=== PATIENT | male | born 1970 | race Caucasian/White ===

== ENCOUNTER 2023-05-19 06:16 | Inpatient (IN) ==
[2023-05-19] MEDS: SODIUM CHLORIDE 0.9% 1,000 ML IV ONE ×2 (06:43→07:51)
[2023-05-19] MEDS: ALBUT/IPRATROP 3MG/0.5MG NEB 3 ML VIAL NEB STA ×2 (06:43→06:47)
[2023-05-19] MEDS: ACETAMINOPHEN 1,000 MG/100 ML VIAL IV STA (06:49)
[2023-05-19 06:50] LABS: Base Excess VBG -1.1 mEq/L; HCO3 VBG 22 mmol/L; Oxygen Saturation VBG 79.1 %; PCO2 VBG 33 mmHg (38-50); PO2 VBG 45 mmHg; pH VBG 7.44 (7.36-7.41)
--- NOTE | 2023-05-19 06:52 | Emergency Department Note ---
Impression & Plan Acute respiratory failure with hypoxia, Lactic acidosis, Sepsis, Influenza A (H1N1) ED Provider Note NAME: SKYLER DURHAM AGE: 52 SEX: M : 1970 ARRIVES VIA: Walk-In INFORMANT: Patient, ED PROVIDER(S): Zackery Keller MD CHIEF COMPLAINT: Lethargy, increased work of breathing, fever MEDICAL DECISION MAKING: Patient presents due to concern for lethargy increased work of breathing and fever. The patient is arousable to verbal stimuli and does follow commands. IV was established and blood work was obtained. Patient was ordered IV fluids DuoNeb treatment methylprednisolone chest x-ray BioFire blood cultures and lactate. Patient was also ordered empiric antibiotics as well as antipyretics given the reported fever at home. Patient's blood work shows a white count of 43,000 with a normal H&H and platelet count. The patient's kidney function with creatinine 1.54 mild hyponatremia 134 blood gas with a VBG pH is 7.44 and pCO2 of 33. Patient's initial lactate was 3. Magnesium noted to be low at 1.4. Initial troponin 21.6. Patient did receive 2 L and was ordered a third. Procalcitonin is elevated at 21. The patient did have softer blood pressures and initially there was a concern for decreased blood pressure after speaking with the inpatient service Dr. Mitchell who evaluated the patient. Also of note the patient may have had an allergic reaction to the Zosyn which was stopped. Patient reportedly does not do well with Benadryl but it already received methylprednisolone. The patient was ordered Pepcid IV by the inpatient team I did go and evaluate the patient the patient's MAP was 74 and was receiving his third liter. The patient does look markedly improved since the time of his arrival and after treatment. Patient was also noted to be flu positive negative for MRSA and bio fire was positive for enterorhinovirus. Patient was subsequently admitted by the medicine team. Critical Care: I have personally spent 50 minutes of critical care time in direct management of this patient. This includes bedside care, interpretation of diagnostic studies, and testing, discussion with consultants, patient, and family members, and other require inpatient management activities. This 50 minutes is in excess of all separately billable procedures. Discussion w/ other healthcare providers: Venkat Ruelas PA-C and Dr. Mitchell Prior /Outside records reviewed: None Differential diagnosis: Viral syndrome, otitis, pharyngitis, pneumonia, influenza, meningitis, urinary tract infection, sepsis, bacteremia, as well as other pathologies. Diagnostics, as interpreted by me: ECG: Sinus tachycardia, rate of 110, normal intervals, normal axis no ST elevations, T wave version in the lateral leads. Cardiac monitoring: An order was placed for continuous cardiac monitoring. The monitor shows a rate of 102 with tachycardic and regular rhythm. Patient was placed on pulse oximetry Medical decision rules: None Imaging studies: I informally interpreted the patient's chest x-ray does show left-sided pleural effusion with formal report to follow. HPI: Patient presents due to concern for increased work of breathing and associated fever. The who is present at bedside provides the majority of the history. She states that about 2 weeks ago the patient had been seen at [facility] and was started on some steroids the patient does have a known history of asthma. Patient was seen by his chain maker loom control this past Monday and continued on steroid treatment but was placed on a taper for which she has been taking. Patient has not taken any antibiotics. Patient is a non-smoker. No known sick contacts or recent travel. Do not receive flu shot this year. When questioned the patient states that he does complain of diffuse allover body aches and pain. Patient does complain of shortness of breath. The patient's had a cough but it has not been very productive. states that she was concerned as she woke up this morning because of his work of breathing took his temperature and noted to be 103. Patient also does have inhaler treatments that he has been taking regularly. PAST MEDICAL HISTORY: See Below PAST SURGICAL HISTORY: See Below SOCIAL HISTORY: See Below HOME MEDICATIONS: See Below ALLERGIES: See Below VITALS: See Below PHYSICAL EXAMINATION: GENERAL: Ill in appearance, opens eyes to voice. EYE EXAM: Normal conjunctiva. PERRL, no anisocoria and EOM's grossly intact w/o pain. OROPHARYNX: Moist mucus membranes, grossly normal dentition. NECK: Trachea midline, no stridor. Supple, no nuchal rigidity, no adenopathy, non-tender. No signs of meningismus. FROM of the neck with good chin to chest and neck extension. LUNGS: Decreased breath sounds throughout. Normal chest wall mechanics. HEART: Tachycardic and regular, no MRG. ABDOMEN: Abdomen soft, non-tender, no masses, no rebound or guarding. BACK: No CVA TTP. SKIN: No rashes and no bruising. UPPER EXTREMITIES: Upper extremities are grossly normal. LOWER EXTREMITIES: Grossly normal, no edema. NEURO EXAM: GCS of 14, cranial nerves II-XII grossly intact, normal speech, moves all 4 extremities. Past Med/Surg History Medical History Asthma Surgical History No pertinent past surgical history Social History Smoking Status: Never smoker Hx Alcohol Use: Yes Alcohol type: wine Hx Substance Use: No Preferred Language: Sinhala Communication Ability: Effective Phone Screener Required: No Beliefs That Will Affect Care: None Current Living Situation: Spouse Feels Safe at Home: Yes Assistive Devices: Nebulizer Allergies Allergies Allergy/AdvReac Type Severity Reaction Status Date / Time piperacillin [From Zosyn] Allergy Intermediate Hives Unverified 05/19/23 10:35 tazobactam [From Zosyn] Allergy Intermediate Hives Unverified 05/19/23 10:35 fish oil Allergy Hives Verified 05/19/23 10:25 diphenhydramine AdvReac Agitated Verified 05/19/23 10:25 [From Benadryl] Home Meds Home Medications Medication Instructions Recorded Confirmed acetaminophen 500 mg tablet 500 mg PO Q6H PRN pain/fever 05/19/23 05/19/23 albuterol sulfate 1.25 mg/3 mL 1.25 mg continuous nebulization 05/19/23 05/19/23 solution for nebulization Q4H PRN Breathing Problems albuterol sulfate 90 mcg/actuation 2 puff inhalation Q4H PRN 05/19/23 05/19/23 aerosol inhaler Breathing Problems fluticasone fur. 200 mcg-umeclid 1 inh inhalation QAM 05/19/23 05/19/23 62.5 mcg-vilant 25 mcg inhalat.powder (Trelegy Ellipta) ibuprofen 200 mg tablet 200 mg PO Q6H PRN Pain 05/19/23 05/19/23 montelukast 10 mg tablet 10 mg PO HS 05/19/23 05/19/23 naproxen 500 mg tablet,delayed 500 mg PO BID PRN pain in knees 05/19/23 05/19/23 release prednisone 10 mg tablet See Rx Instructions .Route .COMPLEX 05/19/23 05/19/23 tramadol 50 mg tablet 50 mg PO Q8H PRN Severe Pain 05/19/23 05/19/23 (Scale Score 7-10) Results & Data (ED) Vital Signs Vital Signs - 24 hr 05/19/23 06:30 05/19/23 06:42 05/19/23 06:44 Temperature 36.2 C L Temperature Source Temporal Artery Scan Pulse Rate 111 H 107 H 114 H Pulse Rate from SpO2 Sensor Respiratory Rate 24 20 Blood Pressure 81/55 L Blood Pressure Mean 63 Pulse Oximetry 92 84 L Oxygen Delivery Method Room Air Room Air Oxygen Flow Rate 10 Sepsis Recent Fever Within 48 Hours Yes Sepsis New/Unexplained Change in Mental Status Yes Sepsis Action Taken by Nursing No Action Required 05/19/23 07:00 05/19/23 07:15 05/19/23 07:30 Temperature Temperature Source Pulse Rate 108 H 113 H 115 H Pulse Rate from SpO2 Sensor 108 H 113 H 115 H Respiratory Rate 20 20 19 Blood Pressure 101/65 98/58 L 93/60 L Blood Pressure Mean 77 71 71 Pulse Oximetry 99 96 96 Oxygen Delivery Method Nebulizer Nebulizer Nebulizer Oxygen Flow Rate Sepsis Recent Fever Within 48 Hours Sepsis New/Unexplained Change in Mental Status Sepsis Action Taken by Nursing 05/19/23 07:45 05/19/23 08:00 05/19/23 08:15 Temperature Temperature Source Pulse Rate 115 H 111 H 111 H Pulse Rate from SpO2 Sensor 116 H 111 H 111 H Respiratory Rate 20 18 19 Blood Pressure 80/59 L 91/58 L 84/65 L Blood Pressure Mean 66 69 71 Pulse Oximetry 93 94 93 Oxygen Delivery Method Oxymask Oxygen Flow Rate 4 Sepsis Recent Fever Within 48 Hours Sepsis New/Unexplained Change in Mental Status Sepsis Action Taken by Nursing 05/19/23 08:30 Temperature Temperature Source Pulse Rate 109 H Pulse Rate from SpO2 Sensor 109 H Respiratory Rate 17 Blood Pressure 88/58 L Blood Pressure Mean 68 Pulse Oximetry 93 Oxygen Delivery Method Oxygen Flow Rate Sepsis Recent Fever Within 48 Hours Sepsis New/Unexplained Change in Mental Status Sepsis Action Taken by Group Home Medications Current Medication List: was personally reviewed by mo Laboratory Data Attestation: I reviewed the patient's lab results. 05/19/23 06:34 05/19/23 06:34 Lab Results 05/19/23 05/19/23 05/19/23 Range/Units 06:34 06:35 07:05 WBC 43.91 H* (4.8-10.8) K/ul RBC 5.68 (4.70-6.10) M/uL Hgb 16.7 (14.0-18.0) g/dl Hct 49.1 (42.0-52.0) % MCV 86.4 (80.0-100.0) fL MCH 29.4 (25.0-34.0) pg MCHC 34.0 (32.0-36.0) g/dL RDW Std Deviation 45.7 (36.4-46.3) fL RDW Coeff of Nicola 14.6 H (11.5-14.5) % Plt Count 280 (130-400) K/uL MPV 10.2 (9.4-12.4) fL Immature Gran % (Auto) 2.5 % Neut % (Auto) 84.1 % Lymph % (Auto) 9.2 % Nobles % (Auto) 4.1 % Eos % (Auto) 0.0 % Baso % (Auto) 0.1 % Neut # (Auto) 36.92 H (1.40-6.50) K/uL Lymph # (Auto) 4.05 H (1.20-3.40) K/uL Nobles # (Auto) 1.79 H (0.11-0.59) K/uL Eos # (Auto) 0.02 (0.00-0.50) K/uL Baso # (Auto) 0.03 (0.00-0.20) K/uL Immature Gran # (Auto) 1.10 H (0.01-0.20) K/uL Toxic Vacuolation 1+ Polychromasia 1+ PT 11.9 (9.0-12.0) Seconds INR 1.1 (0.9-1.1) VBG pH 7.44 H (7.36-7.41) VBG pCO2 33 L (38-50) mmHg VBG pO2 45 mmHg VBG HCO3 22 mmol/L VBG O2 Saturation 79.1 % VBG Base Excess -1.1 mEq/L Sodium 134 L (136-145) mmol/L Potassium 3.7 (3.5-5.1) mmol/L Chloride 100 (98-107) mmol/L Carbon Dioxide 24 (21-32) mmol/L Anion Gap 10 (3-11) BUN 20 (6-23) mg/dl Creatinine 1.54 H (0.6-1.4) mg/dl Est Cr Clr Drug Dosing 61.0 ml/min Est GFR ( Amer) 59.2 ml/min Est GFR (Non-Af Amer) 51.1 ml/min BUN/Creatinine Ratio 13.0 (10-20) Glucose 106 H (70-99(Fasting)) mg/dl Lactate (0.4-2.0) mmol/L Calcium 8.8 (8.6-10.3) mg/dl Magnesium 1.4 L (1.7-2.4) mg/dl Total Bilirubin 2.5 H (0.2-1.0) mg/dl AST 18 (13-39) U/L ALT 25 (7-52) U/L Alkaline Phosphatase 88 (34-104) U/L Troponin I High Sens 21.6 H (0-20) pg/ml B-Natriuretic Peptide 79 (0-100) pg/ml Total Protein 6.5 (6.0-8.3) gm/dl Albumin 3.9 (3.4-5.0) gm/dl Globulin 2.6 (2.5-4.0) gm/dl Albumin/Globulin Ratio 1.5 (0.9-2) Procalcitonin 21.10 H (0-0.5) ng/ml Nasal Influ A H1 2008 PCR DETECTED A (NotDetected) Nasal Screen MRSA (PCR) (Negative) Adenovirus (PCR) Not Detected (NotDetected) B. pertussis DNA (PCR) Not Detected (NotDetected) B.parapertussis DNA PCR Not Detected (NotDetected) C. pneumoniae DNA (PCR) Not Detected (NotDetected) Coronavirus OC43 (PCR) Not Detected (NotDetected) Coronavirus HKU1 (PCR) Not Detected (NotDetected) Coronavirus 229E (PCR) Not Detected (NotDetected) SARS-CoV-2 (PCR) Not Detected (NotDetected) Coronavirus NL63 (PCR) Not Detected (NotDetected) Human Metapneumovir PCR Not Detected (NotDetected) Influenza Type B (PCR) Not Detected (NotDetected) M. pneumoniae (PCR) Not Detected (NotDetected) Parainfluenza 1 (PCR) Not Detected (NotDetected) Parainfluenza 2 (PCR) Not Detected (NotDetected) Parainfluenza 3 (PCR) Not Detected (NotDetected) Parainfluenza 4 (PCR) Not Detected (NotDetected) RSV (PCR) Not Detected (NotDetected) Entero/Rhino (PCR) DETECTED A (NotDetected) 05/19/23 05/19/23 Range/Units 07:14 07:59 WBC (4.8-10.8) K/ul RBC (4.70-6.10) M/uL Hgb (14.0-18.0) g/dl Hct (42.0-52.0) % MCV (80.0-100.0) fL MCH (25.0-34.0) pg MCHC (32.0-36.0) g/dL RDW Std Deviation (36.4-46.3) fL RDW Coeff of Nicola (11.5-14.5) % Plt Count (130-400) K/uL MPV (9.4-12.4) fL Immature Gran % (Auto) % Neut % (Auto) % Lymph % (Auto) % Nobles % (Auto) % Eos % (Auto) % Baso % (Auto) % Neut # (Auto) (1.40-6.50) K/uL Lymph # (Auto) (1.20-3.40) K/uL Nobles # (Auto) (0.11-0.59) K/uL Eos # (Auto) (0.00-0.50) K/uL Baso # (Auto) (0.00-0.20) K/uL Immature Gran # (Auto) (0.01-0.20) K/uL Toxic Vacuolation Polychromasia PT (9.0-12.0) Seconds INR (0.9-1.1) VBG pH (7.36-7.41) VBG pCO2 (38-50) mmHg VBG pO2 mmHg VBG HCO3 mmol/L VBG O2 Saturation % VBG Base Excess mEq/L Sodium (136-145) mmol/L Potassium (3.5-5.1) mmol/L Chloride (98-107) mmol/L Carbon Dioxide (21-32) mmol/L Anion Gap (3-11) BUN (6-23) mg/dl Creatinine (0.6-1.4) mg/dl Est Cr Clr Drug Dosing ml/min Est GFR ( Amer) ml/min Est GFR (Non-Af Amer) ml/min BUN/Creatinine Ratio (10-20) Glucose (70-99(Fasting)) mg/dl Lactate 3.0 H* (0.4-2.0) mmol/L Calcium (8.6-10.3) mg/dl Magnesium (1.7-2.4) mg/dl Total Bilirubin (0.2-1.0) mg/dl AST (13-39) U/L ALT (7-52) U/L Alkaline Phosphatase (34-104) U/L Troponin I High Sens (0-20) pg/ml B-Natriuretic Peptide (0-100) pg/ml Total Protein (6.0-8.3) gm/dl Albumin (3.4-5.0) gm/dl Globulin (2.5-4.0) gm/dl Albumin/Globulin Ratio (0.9-2) Procalcitonin (0-0.5) ng/ml Nasal Influ A H1 2008 PCR (NotDetected) Nasal Screen MRSA (PCR) Negative (Negative) Adenovirus (PCR) (NotDetected) B. pertussis DNA (PCR) (NotDetected) B.parapertussis DNA PCR (NotDetected) C. pneumoniae DNA (PCR) (NotDetected) Coronavirus OC43 (PCR) (NotDetected) Coronavirus HKU1 (PCR) (NotDetected) Coronavirus 229E (PCR) (NotDetected) SARS-CoV-2 (PCR) (NotDetected) Coronavirus NL63 (PCR) (NotDetected) Human Metapneumovir PCR (NotDetected) Influenza Type B (PCR) (NotDetected) M. pneumoniae (PCR) (NotDetected) Parainfluenza 1 (PCR) (NotDetected) Parainfluenza 2 (PCR) (NotDetected) Parainfluenza 3 (PCR) (NotDetected) Parainfluenza 4 (PCR) (NotDetected) RSV (PCR) (NotDetected) Entero/Rhino (PCR) (NotDetected) Administered Medications Albuterol (Albut/Ipratrop 3mg/0.5mg Neb 3 Ml Vial) 3 ml NEB Q4R ALVAREZ; Protocol Stop: 06/18/23 12:11 Last Admin: 05/19/23 13:28 Dose: 3 ml Documented By: VINNY Benzonatate (Benzonatate 100 Mg Capsule) 100 mg PO TID [facility] Stop: 06/18/23 12:11 Last Admin: 05/19/23 13:38 Dose: Not Given Documented By: Admin: 05/19/23 12:48 Dose: 100 mg Documented By: SHEILA Enoxaparin Sodium (Enoxaparin Inj 30 Mg/0.3 Ml Syr) 30 mg SQ Q12H ALVAREZ Stop: 06/18/23 11:59 Last Admin: 05/19/23 12:47 Dose: 30 mg Documented By: SHEILA Fludrocortisone Acetate (Fludrocortisone Acetate 0.1 Mg Tab) 0.1 mg PO QAM [facility] Stop: 06/18/23 11:29 Last Admin: 05/19/23 12:47 Dose: 0.1 mg Documented By: SHEILA Guaifenesin (Guaifenesin 600 Mg Tabcr) 1,200 mg PO Q12 [facility] Stop: 06/18/23 12:11 Last Admin: 05/19/23 13:53 Dose: 1,200 mg Documented By: SHEILA Cefepime HCl 2,000 mg/ Syringe 20 mls @ 5 mls/min IV Q8H ALVAREZ; Protocol Stop: 05/26/23 09:59 Last Admin: 05/19/23 12:19 Dose: 5 mls/min Documented By: SHEILA Metronidazole (Flagyl) 500 mg in 100 mls @ 100 mls/hr IV Q12H ALVAREZ; Protocol Stop: 05/26/23 09:59 Last Infusion: 05/19/23 12:42 Dose: Infused Documented By: Admin: 05/19/23 10:21 Dose: 100 mls/hr Documented By: MMVenancio Hydrocortisone Sodium (Succinate 50 mg/ Syringe) 1 mls @ 4 mls/min IV Q6H AL[facility]AREZ Stop: 06/18/23 11:59 Last Admin: 05/19/23 12:48 Dose: 4 mls/min Documented By: SHEILA Sodium Chloride (Nss) 1,000 mls @ 125 mls/hr IV .Q8H ALVAREZ Stop: 05/19/23 20:11 Last Admin: 05/19/23 13:19 Dose: 125 mls/hr Documented By: SHEILA Oseltamivir Phosphate (Oseltamivir Phosphate 75 Mg Cap) 75 mg PO BID ALVAREZ; Protocol Stop: 05/24/23 11:29 Last Admin: 05/19/23 12:47 Dose: 75 mg Documented By: SHEILA Discontinued Medications Albuterol (Albut/Ipratrop 3mg/0.5mg Neb 3 Ml Vial) 3 ml NEB NOW STA; Protocol Stop: 05/19/23 06:37 Last Admin: 05/19/23 06:47 Dose: Not Given Documented By: PARMJIT Albuterol (Albut/Ipratrop 3mg/0.5mg Neb 3 Ml Vial) 12 ml NEB NOW STA; Protocol Stop: 05/19/23 06:37 Last Admin: 05/19/23 06:47 Dose: 12 ml Documented By: PARMJIT Famotidine (Famotidine 20mg/5ml Iv Push) Confirm Administered Dose 20 mg IV .STK-MED ONE Stop: 05/19/23 09:45 Last Admin: 05/19/23 09:49 Dose: 20 mg Documented By: KARTHIK Sodium Chloride (Nss) 1,000 mls @ 999 mls/hr IV .Q1H1M ONE Stop: 05/19/23 07:36 Last Infusion: 05/19/23 07:52 Dose: Infused Documented By: Admin: 05/19/23 06:43 Dose: 999 mls/hr Documented By: PARMJIT Piperacillin Sod/Tazobactam Sod (Zosyn) 4.5 gm in 100 mls @ 200 mls/hr IV NOW ONE Stop: 05/19/23 07:12 Last Infusion: 05/19/23 08:31 Dose: Infused Documented By: Admin: 05/19/23 07:47 Dose: 200 mls/hr Documented By: KARTHIK Acetaminophen (Ofirmev) 1,000 mg in 100 mls @ 400 mls/hr IV NOW STA Stop: 05/19/23 06:57 Last Infusion: 05/19/23 07:33 Dose: Infused Documented By: Admin: 05/19/23 06:49 Dose: 400 mls/hr Documented By: CODY Sodium Chloride (Nss) 1,000 mls @ 999 mls/hr IV .Q1H1M ONE Stop: 05/19/23 07:52 Last Infusion: 05/19/23 09:30 Dose: Infused Documented By: Admin: 05/19/23 07:51 Dose: 999 mls/hr Documented By: KARTHIK Sodium Chloride (Nss) 250 mls @ 999 mls/hr IV .Q16M ONE Stop: 05/19/23 08:42 Last Infusion: 05/19/23 09:30 Dose: Infused Documented By: Admin: 05/19/23 09:10 Dose: 999 mls/hr Documented By: KARTHIK Magnesium Sulfate/Dextrose (Magnesium Sulfate / D5w) 1 gm in 100 mls @ 50 mls/hr IV Q2H ALVAREZ Stop: 05/19/23 12:44 Last Infusion: 05/19/23 12:43 Dose: Infused Documented By: Admin: 05/19/23 10:51 Dose: 50 mls/hr Documented By: Infusion: 05/19/23 10:51 Dose: Infused Documented By: Admin: 05/19/23 09:10 Dose: 50 mls/hr Documented By: KARTHIK Vancomycin HCl 2,250 mg/ (Sodium Chloride) 545 mls @ 200 mls/hr IV NOW ONE Stop: 05/19/23 12:02 Last Infusion: 05/19/23 13:39 Dose: Infused Documented By: Admin: 05/19/23 10:20 Dose: 200 mls/hr Documented By: BRIANNA Sodium Chloride (Nss) 1,000 mls @ 999 mls/hr IV .Q1H1M ALVAREZ Stop: 05/19/23 10:45 Last Infusion: 05/19/23 13:39 Dose: Infused Documented By: Admin: 05/19/23 09:48 Dose: 999 mls/hr Documented By: KARTHIK Famotidine (Pepcid 20mg Iv Push) 20 mg in 5 mls @ 2.5 mls/min IV NOW STA Stop: 05/19/23 09:42 Last Admin: 05/19/23 10:21 Dose: Not Given Documented By: KARTHIK Parenteral Electrolytes (Plasma-Lyte A Ph 7.4) 1,000 mls @ 999 mls/hr IV .Q1H1M ONE Stop: 05/19/23 12:06 Last Infusion: 05/19/23 13:39 Dose: Infused Documented By: Admin: 05/19/23 12:19 Dose: 999 mls/hr Documented By: SHEILA Ioversol (Optiray 320 125ml) 115 ml IV ONCE ONE Stop: 05/19/23 11:32 Last Admin: 05/19/23 11:32 Dose: 115 ml Documented By: LAMINE Lidocaine HCl (Lidocaine 2% Jelly 5 Ml Tube) 1 ml EXT NOW ONE Stop: 05/19/23 09:34 Last Admin: 05/19/23 09:46 Dose: 1 ml Documented By: KARTHIK Methylprednisolone (Methylprednisolone 125 Mg/2 Ml Vial) 125 mg IV NOW STA Stop: 05/19/23 06:48 Last Admin: 05/19/23 07:45 Dose: 125 mg Documented By: KARTHIK Triamcinolone Acetonide (Triamcinolone Acet 0.1% Cr 15 Gm Tube) 1 appln EXT NOW STA Stop: 05/19/23 09:37 Last Admin: 05/19/23 10:20 Dose: 1 appln Documented By: MMG Imaging Data Radiologist's Impression: Chest X-Ray 05/19/23 06:21 XR chest 1V portable HISTORY: 52 years-old Male Dyspnea acute shortness breath COMPARISON: None TECHNIQUE: AP view of the chest FINDINGS: Cardiac silhouette is enlarged. Congestion and pulmonary vascular congestion. Chronic right-sided rib fractures. No pneumothorax. Small pleural effusions with left greater than right bibasilar consolidation. Bones appear grossly intact. IMPRESSION: 1. Mild cardiomegaly with pulmonary vascular congestion. 2. Small pleural effusions with left greater than right bibasilar consolidation. Correlate clinically to exclude pneumonia. ACT 112: Negative or not required by law. The above report was generated using voice recognition software. It may contain grammatical, syntax or spelling errors. Electronically signed by: Esteban Barbosa M.D. 05/19/2023 7:00 AM Discharge Plan Visit Data Chief Complaint: Respiratory Problems Stated Complaint: HARD TO BREATH,ASTHMA ED Provider: Zackery Keller Discharge Problem: Acute respiratory failure with hypoxia, Lactic acidosis, Sepsis, Influenza A (H1N1) Patient Disposition: Admitted As Inpatient Discharge Instructions Interventions: ED Discharge Assessment Last Done: 05/19/23 09:02 Discharge Problem: Sepsis Qualifiers: Sepsis type: sepsis due to unspecified organism Sepsis acute organ dysfunction status: with acute organ dysfunction Severe sepsis acute organ dysfunction type: acute respiratory failure Acute respiratory failure type: with hypoxia Severe sepsis shock status: unspecified Qualified Code(s): A41.9 - Sepsis, unspecified organism; R65.20 - Severe sepsis without septic shock; J96.01 - Acute respiratory failure with hypoxia
--- NOTE | 2023-05-19 07:01 | XRay Report ---
XR chest 1V portable HISTORY: 52 years-old Male Dyspnea acute shortness breath COMPARISON: None TECHNIQUE: AP view of the chest FINDINGS: Cardiac silhouette is enlarged. Congestion and pulmonary vascular congestion. Chronic right-sided rib fractures. No pneumothorax. Small pleural effusions with left greater than right bibasilar consolida tion. Bones appear grossly intact. IMPRESSION: 1. Mild cardiomegaly with pulmonary vascular congestion. 2. Small pleural effusions with left greater than right bibasilar consolidation. Correlate clinically to exclude pneumonia. ACT 112: Negative or not required by law. The above report was generated using voice recognition software. It may contain grammatical, syntax o r spelling errors. Electronically signed by: Esteban Barbosa M.D. 05/19/2023 7:00 AM
[2023-05-19 07:12] LABS: Hematocrit (blood only) 49.1 % (42.0-52.0); Hemoglobin 16.7 g/dl (14.0-18.0); Mean Corpuscular Hemoglobin 29.4 pg (25.0-34.0); Mean Corpuscular Volume 86.4 fL (80.0-100.0); Mean Platelet Volume 10.2 fL (9.4-12.4); Platelet Count 280 K/uL (130-400); RDW Coefficient of Variation 14.6 % (11.5-14.5); RDW Standard Deviation 45.7 fL (36.4-46.3); Red Blood Count 5.68 M/uL (4.70-6.10); White Blood Count 43.91 K/ul (4.8-10.8)
[2023-05-19 07:16] LABS: Albumin Globulin Ratio 1.5 (0.9-2); Albumin Level 3.9 gm/dl (3.4-5.0); Bilirubin,Total 2.5 mg/dl (0.2-1.0); Calcium 8.8 mg/dl (8.6-10.3); Est GFR (African American) 59.2 ml/min; Est GFR (Non-African American) 51.1 ml/min; Globulin 2.6 gm/dl (2.5-4.0); Magnesium 1.4 mg/dl (1.7-2.4); Potassium 3.7 mmol/L (3.5-5.1); Total Protein 6.5 gm/dl (6.0-8.3)
[2023-05-19 07:23] LABS: Troponin I High Sensitivity 21.6 pg/ml (0-20)
[2023-05-19 07:27] LABS: Basophils # (auto) 0.03 K/uL (0.00-0.20); Basophils % (auto) 0.1 %; Eosinophils # (auto) 0.02 K/uL (0.00-0.50); Immature Granulocytes % (auto) 2.5 %; Lymphocytes # (auto) 4.05 K/uL (1.20-3.40); Lymphocytes % (auto) 9.2 %; Monocytes # (auto) 1.79 K/uL (0.11-0.59); Monocytes % (auto) 4.1 %; Neutrophils # (auto) 36.92 K/uL (1.40-6.50); Neutrophils % (auto) 84.1 %; Polychromasia 1+; Toxic Vacuolation 1+
[2023-05-19 07:43] LABS: INR 1.1 (0.9-1.1); Prothrombin Time 11.9 Seconds (9.0-12.0)
[2023-05-19] MEDS: methylPREDNISolone 125 MG/2 ML VIAL IV STA (07:45)
[2023-05-19 07:46] LABS: Adenovirus PCR Not Detected (NotDetected); Bordetella parapertussis PCR Not Detected (NotDetected); Bordetella pertussis PCR Not Detected (NotDetected); Chlamydia pneumoniae PCR Not Detected (NotDetected); Coronavirus 229E PCR Not Detected (NotDetected); Coronavirus CoV-2 (COVID19)PCR Not Detected (NotDetected); Coronavirus HKU1 PCR Not Detected (NotDetected); Coronavirus NL63 PCR Not Detected (NotDetected); Coronavirus OC43PCR Not Detected (NotDetected); Human Metapneumovirus PCR Not Detected (NotDetected); Influenza A (H1 2009) PCR DETECTED (NotDetected); Influenza B PCR Not Detected (NotDetected); Mycoplasma pneumoniae PCR Not Detected (NotDetected); Parainfluenza Virus 1 PCR Not Detected (NotDetected); Parainfluenza Virus 2 PCR Not Detected (NotDetected); Parainfluenza Virus 3 PCR Not Detected (NotDetected); Parainfluenza Virus 4 PCR Not Detected (NotDetected); Respiratory Syncytial VirusPCR Not Detected (NotDetected); Rhinovirus/Enterovirus PCR DETECTED (NotDetected)
[2023-05-19] MEDS: PIPERACILLIN/TAZOBACTAM 4.5 GM/100 ML BAG IV ONE (07:47)
--- NOTE | 2023-05-19 08:24 | History & Physical Report ---
Date of Service May 19, 2023 Assessment & Plan (1) Acute respiratory failure with hypoxia: (2) Sepsis: (3) Rhinovirus infection: (4) Lactic acidosis: (5) Hypotension: Plan: Acute Resp Failure with Hypoxia, new O2 requirement Severe Sepsis with lactic acidosis, hypotension, JIMBO + Influenza/Enterovirus/Rhinovirus Possible Pneumonia Suspected JIMBO in the setting of acute infection Encephalopathy Hx of Asthma PMHx of asthma, non-smoker, who presents to the hospital with increased work of breathing, dyspnea on exertion, change in mental status. Pt admitted with 1 day of acute worsening respiratory status, confusion, lethargy. He has had resp symptoms for about 4 weeks. Initially placed on steroids and antibiotic x 2 weeks, then another round of slow taper prednisone (currently on 20 mg daily). - Admit to PCU - may require ICU if BP not improved with fluid resuscitation - Attending has discussed with ICU, appreciate recs - CTPE of the chest ordered, with tachycardia, hypotension, resp sx, reviewed CXR personally showing pulmonary congestion - Follow BCx x 2, WBC is elevated at 43 K with a left shift, creatinine of 1.5, BUN 20 but no previous labs to compare this to, lactate 3.0-->2.6, mag 1.4, troponin slightly bumped at 21.6 --unchanged on second set, likely cardiorenal, blood pressure is slightly soft, tachycardic, and has new O2 oxygen requirement, BNP 76 - Mag 1.4, will replace with 2 g IV - Started on zosyn in the ER-- pt is now developing hives under arms, abdomen and ankles, likely allergy. Will treat with famotidine IV, topical lotion for itching, no benadryl as pt/ state he becomes agitated with such. States rash is itchy. - procal elevated -- treating possible pna with cefepime, vanc, flagyl IV - Solumedrol 125 mcg IV given- will monitor, consider addition of steroids, will hold off for now - NSS x 2 L, cont fluid resuscitation --another L now, pt BP recycled at 86/70. Monitor. Pt agreeable to vasopressors if needed, Full CODE - Will renally reduce medications and avoid nephrotoxins with JIMBO, insert bhardwaj cath for strict I/Os - EKG reviewed showing sinus tachycardia, no previous to compare to. Repeat prn. - Check echo - Check CT abd/pelvis w/ contrast now with hx of cholecystectomy in August 2022, elevated Tbili 2.5 - Previous hx of smoking, smoked for under 5 years, quit 25 years ago, hx of exposure to black mold and s/p nasal polypectomy - No abdominal complaints or urinary complaints, checking UA/UCx for completeness, Pt denies any malignant hx, no previous colonoscopy - will recommend once outpatient DVT ppx: teds, scds, heparin subq Lines: 2 PIV FEN/GI: NPO for now CODE: FULL Dispo: From home, likely to remain in the hospital x 2 days A total of 105 minutes were spent with greater than 50% of that time face to face with the patient, personally reviewing all current laboratories, imaging studies, past medication reconciliation, outpatient chart review, and discussion with specialists to collaborate care for the patient with attending. Please see attending documentation for corrections and/or additions. History of Present Illness Chief Complaint: Shortness of breath Primary Care Provider: Will Mary DO This is a 52-year-old male with PMHx of asthma, non-smoker, who presents to the hospital with increased work of breathing, dyspnea on exertion, change in mental status. Per he has been having symptoms of a cold for the past 4 weeks and was placed on steroids by an urgent care within that timeframe. He then had follow up with his rn dialysis and Dr. Shoemaker in [place], about 2 weeks ago. There he was placed on a mcfp steroid taper with prednisone 30 mg daily x 7 days, then 20 and 10 mg for a week each. He is currently on 20 mg prednisone daily. Last night he felt worsening breathing. This morning he used nebulizer tx, and seemed confused to his , Sara, who is present at bedside. She reports that due to his confusion she took him to the ER. This morning pt was febrile Tmax of 103. Breathing issues started around 2004 when he was exposed to black mold, he underwent nasal polypectomy and asthma since then. CT of the chest is pending, WBC is elevated at 43 K with a left shift, creatinine of 1.5, BUN 20 but no previous labs to compare this to, lactate 3.0, mag 1.4, troponin slightly bumped at 21.6 blood pressure is slightly soft, tachycardic, and has new O2 oxygen requirement. Family Hx: Mother: Multiple CVA, possible clot Father:Aneurysm Brother: Prostate Cancer Surgical Hx: Cholecystectomy Allergies Allergy/AdvReac Type Severity Reaction Status Date / Time piperacillin [From Zosyn] Allergy Intermediate Hives Unverified 05/19/23 10:35 tazobactam [From Zosyn] Allergy Intermediate Hives Unverified 05/19/23 10:35 fish oil Allergy Hives Verified 05/19/23 10:25 diphenhydramine AdvReac Agitated Verified 05/19/23 10:25 [From Benadryl] Home Medications Medication Instructions Recorded Confirmed Type acetaminophen 500 mg tablet 500 mg PO Q6H PRN pain/fever 05/19/23 05/19/23 History albuterol sulfate 1.25 mg/3 mL 1.25 mg continuous nebulization 05/19/23 05/19/23 History solution for nebulization Q4H PRN Breathing Problems albuterol sulfate 90 mcg/actuation 2 puff inhalation Q4H PRN 05/19/23 05/19/23 History aerosol inhaler Breathing Problems fluticasone fur. 200 mcg-umeclid 1 inh inhalation QAM 05/19/23 05/19/23 History 62.5 mcg-vilant 25 mcg inhalat.powder (Trelegy Ellipta) ibuprofen 200 mg tablet 200 mg PO Q6H PRN Pain 05/19/23 05/19/23 History montelukast 10 mg tablet 10 mg PO HS 05/19/23 05/19/23 History naproxen 500 mg tablet,delayed 500 mg PO BID PRN pain in knees 05/19/23 05/19/23 History release prednisone 10 mg tablet See Rx Instructions .Route .COMPLEX 05/19/23 05/19/23 History tramadol 50 mg tablet 50 mg PO Q8H PRN Severe Pain 05/19/23 05/19/23 History (Scale Score 7-10) Past Med/Surg History Medical History Asthma Surgical History No pertinent past surgical history Social History Smoking Status: Never smoker Hx Alcohol Use: Yes Alcohol type: wine Hx Substance Use: No Preferred Language: Kyr[place]z Communication Ability: Effective Meat Washer Required: No Beliefs That Will Affect Care: None Current Living Situation: Spouse Feels Safe at Home: Yes Assistive Devices: Nebulizer Review of Systems Review of Systems: Constitutional: + fever, sweats and chills, + lightheaded/dizziness Eyes: No diplopia, no worsening or blurred vision ENT: normal hearing, no trouble swallowing Respiratory: + cough, no sputum, + dyspnea on exertion as per HPI Cardiovascular: No chest pain, tightness or palpitations Abdomen: No pain, nausea, vomiting, diarrhea or constipation, eating and drinking well Musculoskeletal: No joint pain, calf pain, swelling Neurologic: No weakness, numbness/tingling, or balance problems Psychiatric: No anxiety or depression Skin: No rash or itch Physical Exam Physical Exam: General: awakens to verbal stimuli, alert, no apparent distress, answers questions appropriately Head: Normocephalic, atraumatic ENT: PERRL, EOMI, no pharyngeal exudate, mucous membranes moist Chest: Diminished breath sounds throughout but present, no wheezing, on 4 L via oximask, no crackles Cardiac: Sinus tachycardia, HR in 110s-115 at bedside, no murmur, no JVD, normal peripheral pulses, good capillary refill Abdominal: NABS x 4 quadrants, soft, nondistended, nontender to palpation, no rebound or guarding Extremities: Normal inspection, no peripheral edema or erythema, calfs nontender to palpation Skin: developing hives on ankles, upper inner arms, chest, abdomen Psych: Normal mood and affect Neuro: AAO to place, self and time with year and Month, strength intact bilaterally and rated 4/5, no motor deficits, speech is clear, no peripheral sensory deficits Results & Data Results & Data Vital Signs (Past 12 Hours) Vital Signs Temp Pulse Resp BP Pulse Ox O2 Del Method O2 Flow Rate 05/19/23 07:30 115 H 19 93/60 L 96 Nebulizer 05/19/23 07:15 113 H 20 98/58 L 96 Nebulizer 05/19/23 07:00 108 H 20 101/65 99 Nebulizer 05/19/23 06:44 36.2 C L 114 H 20 81/55 L 84 L Room Air 05/19/23 06:42 107 H 24 92 Room Air 10 05/19/23 06:30 111 H Laboratory Results 05/19/23 07:05 Aerobic Blood Culture - Pending Blood Anaerobic Blood Culture - Pending 05/19/23 06:35 Aerobic Blood Culture - Pending Blood Anaerobic Blood Culture - Pending 05/19/23 05/19/23 05/19/23 07:14 07:05 06:35 WBC RBC Hgb Hct MCV MCH MCHC RDW Std Deviation RDW Coeff of Nicola Plt Count MPV Immature Gran % (Auto) Neut % (Auto) Lymph % (Auto) [place] % (Auto) Eos % (Auto) Baso % (Auto) Neut # (Auto) Lymph # (Auto) [place] # (Auto) Eos # (Auto) Baso # (Auto) Immature Gran # (Auto) Toxic Vacuolation Polychromasia PT INR VBG pH VBG pCO2 VBG pO2 VBG HCO3 VBG O2 Saturation VBG Base Excess Sodium Potassium Chloride Carbon Dioxide Anion Gap BUN Creatinine Est Cr Clr Drug Dosing Est GFR ( Amer) Est GFR (Non-Af Amer) BUN/Creatinine Ratio Glucose Lactate 3.0 H* Calcium Magnesium Total Bilirubin AST ALT Alkaline Phosphatase Troponin I High Sens B-Natriuretic Peptide Total Protein Albumin Globulin Albumin/Globulin Ratio Procalcitonin 21.10 H Nasal Influ A H1 2008 PCR DETECTED A Adenovirus (PCR) Not Detected B. pertussis DNA (PCR) Not Detected B.parapertussis DNA PCR Not Detected C. pneumoniae DNA (PCR) Not Detected Coronavirus OC43 (PCR) Not Detected Coronavirus HKU1 (PCR) Not Detected Coronavirus 229E (PCR) Not Detected SARS-CoV-2 (PCR) Not Detected Coronavirus NL63 (PCR) Not Detected Human Metapneumovir PCR Not Detected Influenza Type B (PCR) Not Detected M. pneumoniae (PCR) Not Detected Parainfluenza 1 (PCR) Not Detected Parainfluenza 2 (PCR) Not Detected Parainfluenza 3 (PCR) Not Detected Parainfluenza 4 (PCR) Not Detected RSV (PCR) Not Detected Entero/Rhino (PCR) DETECTED A 05/19/23 06:34 WBC 43.91 H* RBC 5.68 Hgb 16.7 Hct 49.1 MCV 86.4 MCH 29.4 MCHC 34.0 RDW Std Deviation 45.7 RDW Coeff of Nicola 14.6 H Plt Count 280 MPV 10.2 Immature Gran % (Auto) 2.5 Neut % (Auto) 84.1 Lymph % (Auto) 9.2 [place] % (Auto) 4.1 Eos % (Auto) 0.0 Baso % (Auto) 0.1 Neut # (Auto) 36.92 H Lymph # (Auto) 4.05 H [place] # (Auto) 1.79 H Eos # (Auto) 0.02 Baso # (Auto) 0.03 Immature Gran # (Auto) 1.10 H Toxic Vacuolation 1+ Polychromasia 1+ PT 11.9 INR 1.1 VBG pH 7.44 H VBG pCO2 33 L VBG pO2 45 VBG HCO3 22 VBG O2 Saturation 79.1 VBG Base Excess -1.1 Sodium 134 L Potassium 3.7 Chloride 100 Carbon Dioxide 24 Anion Gap 10 BUN 20 Creatinine 1.54 H Est Cr Clr Drug Dosing 61.0 Est GFR ( Amer) 59.2 Est GFR (Non-Af Amer) 51.1 BUN/Creatinine Ratio 13.0 Glucose 106 H Lactate Calcium 8.8 Magnesium 1.4 L Total Bilirubin 2.5 H AST 18 ALT 25 Alkaline Phosphatase 88 Troponin I High Sens 21.6 H B-Natriuretic Peptide 79 Total Protein 6.5 Albumin 3.9 Globulin 2.6 Albumin/Globulin Ratio 1.5 Procalcitonin Nasal Influ A H1 2008 PCR Adenovirus (PCR) B. pertussis DNA (PCR) B.parapertussis DNA PCR C. pneumoniae DNA (PCR) Coronavirus OC43 (PCR) Coronavirus HKU1 (PCR) Coronavirus 229E (PCR) SARS-CoV-2 (PCR) Coronavirus NL63 (PCR) Human Metapneumovir PCR Influenza Type B (PCR) M. pneumoniae (PCR) Parainfluenza 1 (PCR) Parainfluenza 2 (PCR) Parainfluenza 3 (PCR) Parainfluenza 4 (PCR) RSV (PCR) Entero/Rhino (PCR) Diagnostic Findings Chest X-Ray 05/19/23 06:21 XR chest 1V portable HISTORY: 52 years-old Male Dyspnea acute shortness breath COMPARISON: None TECHNIQUE: AP view of the chest FINDINGS: Cardiac silhouette is enlarged. Congestion and pulmonary vascular congestion. Chronic right-sided rib fractures. No pneumothorax. Small pleural effusions with left greater than right bibasilar consolidation. Bones appear grossly intact. IMPRESSION: 1. Mild cardiomegaly with pulmonary vascular congestion. 2. Small pleural effusions with left greater than right bibasilar consolidation. Correlate clinically to exclude pneumonia. ACT 112: Negative or not required by law. The above report was generated using voice recognition software. It may contain grammatical, syntax or spelling errors. Electronically signed by: Esteban Barbosa M.D. 05/19/2023 7:00 AM Code Status & VTE Plan Code Status Full codde - discussed with pt and at bedside Supervising Physician Co-Signing Physician Notes Pt was seen and examined by myself, Noa Mitchell MD on the day of service. Care was coordinated with Ursula Ruelas PA-C. 52yoM admitted with acute hypoxic failure in the setting of septic shock. Hypotension not responsive to fluid boluses, Inside Tester consulted for pressor support/further BP management New increased oxygen requirement. Altered mental status. Significant leukocytosis. Empiric Cefepime and Flagyl. Pt critical- admitted to the ICU. Otherwise as above. I spent a total [id number] coordinating, documenting, and providing care for this patient excluding time spent in the performance of separately billed services
[2023-05-19] MEDS: SODIUM CHLORIDE 0.9% 250 ML IV ONE (09:10)
[2023-05-19] MEDS: MAGNESIUM SULFATE / D5W 1 GM/100 ML BAG IV SCH (09:10)
[2023-05-19] MEDS ORDERED: VANCOMYCIN CONSULT ACTIVE PRN (09:19)
[2023-05-19] MEDS: LIDOCAINE 2% JELLY 5 ML TUBE EXT ONE (09:46)
[2023-05-19] MEDS: SODIUM CHLORIDE 0.9% 1,000 ML IV SCH ×2 (09:48→13:19)
[2023-05-19] MEDS: FAMOTIDINE 20MG/5ML IV PUSH IV ONE (09:49)
[2023-05-19] MEDS: TRIAMCINOLONE ACET 0.1% CR 15 GM TUBE EXT STA (10:20)
[2023-05-19] MEDS: VANCOMYCIN HCL 2,250 MG in SODIUM CHLORIDE 0.9% 500 ML IV ONE (10:20)
[2023-05-19] MEDS: FAMOTIDINE 20MG IV PUSH 20 MG/5 ML SYR IV STA (10:21)
[2023-05-19] MEDS: metroNIDAZOLE 500 MG/100 ML BAG IV SCH (10:21)
[2023-05-19 10:36] LABS: Appearance Urine Cloudy (Clear); Bacteria Urine Automated Negative (Negative); Bilirubin Urine Negative (Negative); Blood Urine Negative (Negative); Color Urine Yellow; Glucose Urine UA Negative (Negative); Ketones Urine Negative (Negative); Leukocyte Esterase Urine Negative (Negative); Nitrite Urine Negative (Negative); Protein Urine 3+ (Negative); RBC Urine Automated 0-4 /hpf (0-4); Specific Gravity Urine 1.015 (1.000-1.030); Urobilinogen Urine Negative (Negative); pH Urine 5.5 (4.5-7.5)
[2023-05-19 10:52] LABS: Sperm Urine Present (None Prsent)
[2023-05-19 10:54] LABS: Epithelial Cell Urine Auto 0-5 /lpf (0-5)
--- NOTE | 2023-05-19 11:12 | Electrocardiogram Report ---
Test Reason : Blood Pressure : / mmHG Vent. Rate : 110 BPM Atrial Rate : 110 BPM P-R Int : 120 ms QRS Dur : 088 ms QT Int : 324 ms P-R-T Axes : 062 051 107 degrees QTc Int : 438 ms Sinus tachycardia Nonspecific ST abnormality Lateral leads Abnormal ECG No previous ECGs available Confirmed by Klever Montaño ([id number]) on 05/19/2023 11:11:48 AM Referred By: REFERRED SELF Confirmed By:Klever Montaño
--- NOTE | 2023-05-19 11:24 | Critical Care Consultation ---
Date of Consultation May 19, 2023 Assessment & Plan (1) Sepsis: (2) Influenza A (H1N1): (3) Lactic acidosis: (4) Acute respiratory failure with hypoxia: (5) Renal failure: Plan Impression: 52-year-old male with moderate to severe asthma although PFTs are not available admitted with influenza H1 N1, hypoxemic respiratory failure, lactic acidosis, acute renal failure, and septic shock resolved with IV fluids. His lactate is clearing and his sensorium is also significantly improved. Recommendations: 1. Neurologic: Patient presented with altered mental status but this has resolved with IV fluids and supportive care. Continue to monitor clinically. No indication for additional imaging or workup at this time. 2. Cardiovascular: Severe sepsis with septic shock: Resolved with IV fluids. The patient likely still has some effective circulating volume deficit so we will give an additional 1 L crystalloid now and follow urine output and see how he does. No indication for echocardiogram at this point in time. Given his chronic steroid use he is at risk for relative adrenal insufficiency but is already been started on IV steroids. He does not appear to require IV pressors or central venous access currently 3. Pulmonary: History of severe asthma with steroid dependency over the last 4 weeks. PFTs not available to review. Will continue budesonide and Perforomist. Add Incruse to compensate for the patient's outpatient Trelegy. Wean oxygen as tolerated. The patient is already been ordered CTs of the chest abdomen and pelvis which are currently pending. 4. GI: No current issues. Advancing diet as tolerated. PPI 5. Renal: Acute renal failure likely prerenal in etiology. Will check follow- up BMP later this afternoon to ensure he is responding appropriately to IV fluids. Electrolytes will be replaced. 6. Endocrine: Glycemic control per protocol. Random cortisol was not checked with the patient was on prednisone in the outpatient setting. Transition to stress dose hydrocortisone and Florinef. 7. ID: Elevated procalcitonin and white blood cell count of unclear etiology. There is a patchy airspace opacity at the left lung base but will await follow- up imaging with CT of the chest abdomen and pelvis. Has been initiated on Flag yl and cefepime which should be more than adequate for antimicrobial coverage. Regarding his H1 N1 influenza, will place on oseltamavir. Higher dose Lovenox for DVT prophylaxis given hypercoagulable state associated with influenza H1 N 1. Discontinue vancomycin given negative MRSA swab 8. Heme-onc: No current issues. The above recommendations and plan were discussed with the patient as well as with his family at bedside and the admitting service. I think the patient is responding appropriately to interventions initiated in the emergency room and can likely be managed on the telemetry for given his improved lactic acidosis, improved heart rate and blood pressure, resolved altered mental status, and improving urine output however will defer to the admitting service. Will be happy to follow along with you Total of 45 minutes in critical care time was spent in evaluation management and coordinating care for this patient with multiple metabolic derangements and multiorgan system dysfunction. History of Present Illness Attending Physician: Noa Mitchell MD History of Present Illness Asked by hospitalist to evaluate this patient admitted with altered mental status acute renal failure influenza and lactic acidosis. History is obtained from discussion with the patient as well as with his at bedside and review electronic medical record. The patient is a 52-year-old male who is followed in [place] [facility] for asthma. States he has had respiratory issues for about a month. He was initially seen at urgent care about 4 weeks ago and placed on prednisone. He then followed up with his retail loan originator in [place] and has had prednisone continued. Unfortunately we do not have any records from his prior evaluation to review. He initially states that he got better on prednisone but last evening developed increasing shortness of breath with altered mental status. Initially was in the emergency room with low blood pressure and tachycardia with elevated lactate consistent with septic shock. He received crystalloid with improvement in his heart rate blood pressure and mentation and urine output is picked up. His lactate is clearing. He received broad-spectrum antibiotics in the form of Zosyn but developed a rash on his since received H2 and H1 blockers. His white count is elevated. He is on 4 L nasal cannula which is new for him. The patient essentially has no significant tobacco exposure history. 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 He is exposed to multiple ill contacts. He denies any chest pain or palpitations. No nausea vomiting or diarrhea, but he does endorse that his stools are somewhat loose. He is not had any melena or hematochezia. No abdominal pain. He has not noted any skin rashes or lesions. Allergies Allergy/AdvReac Type Severity Reaction Status Date / Time piperacillin [From Zosyn] Allergy Intermediate Hives Unverified 05/19/23 10:35 tazobactam [From Zosyn] Allergy Intermediate Hives Unverified 05/19/23 10:35 fish oil Allergy Hives Verified 05/19/23 10:25 diphenhydramine AdvReac Agitated Verified 05/19/23 10:25 [From Benadryl] zosyn Allergy Intermediate Hives Uncoded 05/19/23 10:25 Home Medications Medication Instructions Recorded Confirmed Type acetaminophen 500 mg tablet 500 mg PO Q6H PRN pain/fever 05/19/23 05/19/23 History albuterol sulfate 1.25 mg/3 mL 1.25 mg continuous nebulization 05/19/23 05/19/23 History solution for nebulization Q4H PRN Breathing Problems albuterol sulfate 90 mcg/actuation 2 puff inhalation Q4H PRN 05/19/23 05/19/23 History aerosol inhaler Breathing Problems fluticasone fur. 200 mcg-umeclid 1 inh inhalation QAM 05/19/23 05/19/23 History 62.5 mcg-vilant 25 mcg inhalat.powder (Trelegy Ellipta) ibuprofen 200 mg tablet 200 mg PO Q6H PRN Pain 05/19/23 05/19/23 History montelukast 10 mg tablet 10 mg PO HS 05/19/23 05/19/23 History naproxen 500 mg tablet,delayed 500 mg PO BID PRN pain in knees 05/19/23 05/19/23 History release prednisone 10 mg tablet See Rx Instructions .Route .COMPLEX 05/19/23 05/19/23 History tramadol 50 mg tablet 50 mg PO Q8H PRN Severe Pain 05/19/23 05/19/23 History (Scale Score 7-10) Patient History Social History Smoking Status: Never smoker Preferred Language: Hebrew Feels Safe at Home: Yes Review of Systems Review of Systems: Please refer to admission H&P. No additions or deletions Physical Exam Constitutional: WD/WN, vitals as above Neck: trachea midline, no thyromegaly Respiratory: normal respiratory effort, lungs clear to auscultation Cardiovascular: RRR, no murmur, no edema Gastrointestinal (Abdomen): normal bowel sounds, soft, nontender, no hepatosplenomegaly Musculoskeletal: Extremities: extremities normal to inspection Neurologic: Nonfocal exam Lymphatic: no cervical lymphadenopathy Results & Data Results & Data Vital Signs (Past 12 Hours) Vital Signs Temp Pulse Resp BP Pulse Ox O2 Del Method O2 Flow Rate 05/19/23 10:27 99 H 15 87/58 L 93 Oxymask 4 05/19/23 10:16 101 H 16 84/59 L 93 Oxymask 4 05/19/23 10:00 105 H 20 86/62 L 94 Oxymask 4 05/19/23 09:50 36.8 C 05/19/23 09:45 114 H 22 92 05/19/23 09:45 92/60 L 05/19/23 09:31 110 H 18 82/64 L 93 Oxymask 4 05/19/23 09:15 104 H 18 79/54 L 92 05/19/23 09:14 104 H 20 83/54 L 92 05/19/23 09:11 106 H 20 85/57 L 93 05/19/23 09:05 108 H 22 68/52 L 93 Oxymask 4 05/19/23 08:45 105 H 17 83/52 L 93 05/19/23 08:30 109 H 17 88/58 L 93 05/19/23 08:15 111 H 19 84/65 L 93 05/19/23 08:00 111 H 18 91/58 L 94 Oxymask 4 05/19/23 07:45 115 H 20 80/59 L 93 05/19/23 07:30 115 H 19 93/60 L 96 Nebulizer 05/19/23 07:15 113 H 20 98/58 L 96 Nebulizer 05/19/23 07:00 108 H 20 101/65 99 Nebulizer 05/19/23 06:44 36.2 C L 114 H 20 81/55 L 84 L Room Air 05/19/23 06:42 107 H 24 92 Room Air 10 05/19/23 06:30 111 H Critical Care Results & Data Vital Signs (Past 12 Hours) Vital Signs Temp Pulse Resp BP Pulse Ox O2 Del Method O2 Flow Rate 05/19/23 10:27 99 H 15 87/58 L 93 Oxymask 4 05/19/23 10:16 101 H 16 84/59 L 93 Oxymask 4 05/19/23 10:00 105 H 20 86/62 L 94 Oxymask 4 05/19/23 09:50 36.8 C 05/19/23 09:45 114 H 22 92 05/19/23 09:45 92/60 L 05/19/23 09:31 110 H 18 82/64 L 93 Oxymask 4 05/19/23 09:15 104 H 18 79/54 L 92 05/19/23 09:14 104 H 20 83/54 L 92 05/19/23 09:11 106 H 20 85/57 L 93 05/19/23 09:05 108 H 22 68/52 L 93 Oxymask 4 05/19/23 08:45 105 H 17 83/52 L 93 05/19/23 08:30 109 H 17 88/58 L 93 05/19/23 08:15 111 H 19 84/65 L 93 05/19/23 08:00 111 H 18 91/58 L 94 Oxymask 4 05/19/23 07:45 115 H 20 80/59 L 93 05/19/23 07:30 115 H 19 93/60 L 96 Nebulizer 05/19/23 07:15 113 H 20 98/58 L 96 Nebulizer 05/19/23 07:00 108 H 20 101/65 99 Nebulizer 05/19/23 06:44 36.2 C L 114 H 20 81/55 L 84 L Room Air 05/19/23 06:42 107 H 24 92 Room Air 10 05/19/23 06:30 111 H Lab & Micro Results (Past 24 Hours) RBC 5.68 M/uL (4.70-6.10) 05/19/23 WBC 43.91 K/ul (4.8-10.8) H* 05/19/23 Hgb 16.7 g/dl (14.0-18.0) 05/19/23 Hct 49.1 % (42.0-52.0) 05/19/23 MCV 86.4 fL (80.0-100.0) 05/19/23 MCH 29.4 pg (25.0-34.0) 05/19/23 MCHC 34.0 g/dL (32.0-36.0) 05/19/23 RDW Standard Deviation 45.7 fL (36.4-46.3) 05/19/23 RDW Coefficient of Variation 14.6 % (11.5-14.5) H 05/19/23 Plt Count 280 K/uL (130-400) 05/19/23 MPV 10.2 fL (9.4-12.4) 05/19/23 Neutrophils (%) (Auto) 84.1 % 05/19/23 Lymphocytes (%) (Auto) 9.2 % 05/19/23 Monocytes # (Auto) 1.79 K/uL (0.11-0.59) H 05/19/23 Eosinophils # (Auto) 0.02 K/uL (0.00-0.50) 05/19/23 Immature Granulocyte % (Auto) 2.5 % 05/19/23 Neutrophils # (Auto) 36.92 K/uL (1.40-6.50) H 05/19/23 Lymphocytes # (Auto) 4.05 K/uL (1.20-3.40) H 05/19/23 Monocytes # (Auto) 1.79 K/uL (0.11-0.59) H 05/19/23 Eosinophils # (Auto) 0.02 K/uL (0.00-0.50) 05/19/23 Basophils # (Auto) 0.03 K/uL (0.00-0.20) 05/19/23 Immature Granulocyte # (Auto) 1.10 K/uL (0.01-0.20) H 05/18 Polychromasia 1+ 05/19/23 Toxic Vacuolation 1+ 05/19/23 Na 134 mmol/L (136-145) L 05/19/23 K 3.7 mmol/L (3.5-5.1) 05/19/23 Cl 100 mmol/L (98-107) 05/19/23 CO2 24 mmol/L (21-32) 05/19/23 Anion Gap 10 (3-11) 05/19/23 BUN 20 mg/dl (6-23) 05/19/23 Creatinine 1.54 mg/dl (0.6-1.4) H 05/19/23 Estimated GFR ( Amer) 59.2 ml/min 05/19/23 Estimated GFR (Non-Af Amer) 51.1 ml/min 05/19/23 BUN/Creatinine Ratio 13.0 (10-20) 05/19/23 Glu 106 mg/dl (70-99(Fasting)) H 05/19/23 Ca 8.8 mg/dl (8.6-10.3) 05/19/23 Total Bilirubin 2.5 mg/dl (0.2-1.0) H 05/19/23 AST 18 U/L (13-39) 05/19/23 ALT 25 U/L (7-52) 05/19/23 Alkaline Phosphatase 88 U/L (34-104) 05/19/23 TP 6.5 gm/dl (6.0-8.3) 05/19/23 Albumin 3.9 gm/dl (3.4-5.0) 05/19/23 Globulin 2.6 gm/dl (2.5-4.0) 05/19/23 Albumin/Globulin Ratio 1.5 (0.9-2) 05/19/23 Mg 1.4 mg/dl (1.7-2.4) L 05/19/23 06:34 Calcium Level 8.8 mg/dl (8.6-10.3) 05/19/23 06:34 Prothromb Time International Ratio 1.1 (0.9-1.1) 05/19/23 06:3 4 Venous Blood pH 7.44 (7.36-7.41) H 05/19/23 06:34 Venous Blood Partial Pressure CO2 33 mmHg (38-50) L 05/19/23 06 :34 Venous Blood Partial Pressure O2 45 mmHg 05/19/23 06:34 Venous Blood HCO3 22 mmol/L 05/19/23 06:34 Venous Blood Base Excess -1.1 mEq/L 05/19/23 06:34 Venous Blood Oxygen Saturation 79.1 % 05/19/23 06:34 Diagnostic Findings (Past 24 Hours) Chest X-Ray 05/19/23 06:21 XR chest 1V portable HISTORY: 52 years-old Male Dyspnea acute shortness breath COMPARISON: None TECHNIQUE: AP view of the chest FINDINGS: Cardiac silhouette is enlarged. Congestion and pulmonary vascular congestion. Chronic right-sided rib fractures. No pneumothorax. Small pleural effusions with left greater than right bibasilar consolidation. Bones appear grossly intact. IMPRESSION: 1. Mild cardiomegaly with pulmonary vascular congestion. 2. Small pleural effusions with left greater than right bibasilar consolidation. Correlate clinically to exclude pneumonia. ACT 112: Negative or not required by law. The above report was generated using voice recognition software. It may contain grammatical, syntax or spelling errors. Electronically signed by: Esteban Barbosa M.D. 05/19/2023 7:00 AM I & O Totals 24 Hours 05/18/23 05/19/23 05/20/23 06:59 06:59 06:59 Intake Total 2550 / 2550 Balance 2550 / 2550 Cumulative 05/19/23 06:16 thru 05/19/23 10:51 Intake Total 2550 Balance 2550 RT Ventilator Mngmt (Last Documented) Ventilator Ordered Settings Respiratory Rate 15 05/19/23 10:27 Ventilator - PT Measurements Respiratory Rate 15 Coding Level of Care Code 03768 CRITICAL CARE 1ST 30-74M Diagnoses Sepsis A41.9 Influenza A (H1N1) J10.1 Lactic acidosis E87.20 Acute respiratory failure with hypoxia J96.01 Renal failure N19
[2023-05-19] MEDS: OPTIRAY 320 125ml IV ONE (11:32)
--- NOTE | 2023-05-19 11:41 | CT Scan Report ---
CT angio chest PE protocol CLINICAL HISTORY: PE TECHNIQUE: Multidetector row helical CT of the chest was performed with angiographic protocol. Dai l and sagittal reformations were obtained. Coronal and sagittal MIPS were obtained from the axial emilia a set and were submitted for review. Automated dose lowering techniques and/or adjustment according to patient size were utilized for this exam. CT DOSE: 2357.25 mGy.cm Comparison: None available at the time of this dictation. FINDINGS: Lungs and pleura: Bilateral lower lung predominant airspace opacities are seen. Bronchial wall thicke jacob is seen. Heart and pericardium: Heart size is normal. No pericardial effusion. Vessels: No evidence of pulmonary embolism. Mediastinum and ira: Subcentimeter lymph nodes are seen. Chest wall and lower neck: Unremarkable. Abdomen: For findings below the diaphragm, please refer to CT of the abdomen dated the same. Bones: Degenerative changes in the thoracic spine. IMPRESSION: 1. No pulmonary embolus. 2. Prominent airspace opacities in the lower lungs and bronchial wall thickening compatible with pne umonia and airways disease ACT 112: Negative or not required by law. Electronically signed by: Tong Ramsey M.D. 05/19/2023 11:39 AM
--- NOTE | 2023-05-19 12:00 | CT Scan Report ---
CT SCAN OF THE ABDOMEN AND PELVIS WITH IV CONTRAST CLINICAL HISTORY: Sepsis. COMPARISON STUDY: No priors. TECHNIQUE: Following the IV administration of 119 cc of Optiray 320, CT scan of the abdomen and pelv is is performed from the lung bases to the proximal femora. Images are reviewed in the axial, sagitta l, and coronal planes. IV contrast was administered without complication. A dose lowering technique w as utilized adhering to the principles of ALARA. FINDINGS: Lung bases: The heart is normal in size and without pericardial effusion. There are small pleural eff usions with bibasilar consolidation. Liver: The contrast-enhanced liver is normal in size, contour, and attenuation. There is mild intrahe patic biliary ductal dilatation. The hepatic veins and portal veins are patent. Periportal edema is n oted. Gallbladder: Surgically absent noting clips in the gallbladder fossa. There is mild thickening and en hancement of the common bile duct wall. Spleen: The spleen is enlarged measuring 14.4 cm in length. Pancreas: Unremarkable. Adrenal glands: Unremarkable. Kidneys: The contrast enhanced kidneys are normal in size and without hydronephrosis. The kidneys enh ance symmetrically. There are bilateral nonobstructing renal calculi which measure up to 4 mm. Abdominal vasculature: The abdominal aorta is normal in course and caliber. Bowel: There is moderate colonic fecal retention. No bowel obstruction is seen. The appendix is well -visualized and normal. Peritoneum: There is no intraperitoneal free air or abdominal ascites. There is laxity ventral abdomi nal wall with protrusion of abdominal contents. Lymphadenopathy: None. Pelvic viscera: The prostate is mildly enlarged and heterogeneous. The bladder is partially decompres sed and a Umana catheter. The wall appears thickened/trabeculated indicating chronic outlet obstructi on. Skeletal structures: There is mild lumbosacral spondylosis. No lytic or blastic lesions are seen. Adilene scular necrosis is noted in the left femoral head. There are chronic/healed bilateral rib fractures. IMPRESSION: 1. There are small pleural effusions with dense bibasilar consolidation. The appearance is typical fo r pneumonia/aspiration pneumonitis. Clinical correlation will be required and radiographic follow-up to resolution is recommended. 2. There is mild intrahepatic biliary ductal dilatation, with mild thickening and enhancement of the common bile duct wall. Correlate with clinical findings and liver function studies. 3. Bilateral nephrolithiasis. 4. There is avascular necrosis of the left femoral head. 5. Splenomegaly. 6. Additional findings as above. ACT 112: Negative or not required by law. Electronically signed by: Farhat Murray M.D. 05/19/2023 11:58 AM
[2023-05-19] MEDS ORDERED: ONDANSETRON INJ 2 MG/ML 2 ML VIAL IV PRN (12:12)
[2023-05-19] MEDS: CEFEPIME 2,000 MG in SYRINGE 0 ML IV SCH (12:19)
[2023-05-19] MEDS: PLASMA-LYTE A 1,000 ML IV ONE (12:19)
[2023-05-19] MEDS: ENOXAPARIN INJ 30 MG/0.3 ML SYR SQ SCH (12:47)
[2023-05-19] MEDS: OSELTAMIVIR PHOSPHATE 75 MG CAP PO SCH (12:47)
[2023-05-19] MEDS: FLUDROCORTISONE ACETATE 0.1 MG TAB PO SCH (12:47)
[2023-05-19] MEDS: HYDROCORTISONE SOD 50 MG in SYRINGE 0 ML IV SCH (12:48)
[2023-05-19] MEDS: BENZONATATE 100 MG CAPSULE PO SCH (12:48)
[2023-05-19] MEDS ORDERED: PIPERACILLIN/TAZOBACTAM 4.5 GM in DEXTROSE 5% MINI-B 100 ML IV SCH (13:00)
[2023-05-19] MEDS: ALBUT/IPRATROP 3MG/0.5MG NEB 3 ML VIAL NEB SCH (13:28)
[2023-05-19] MEDS: guaiFENesin 600 MG TABCR PO SCH (13:53)
[2023-05-19 15:36] LABS: BUN Creatinine Ratio 13.2 (10-20); Calcium 7.5 mg/dl (8.6-10.3); Creatinine Clr Calc Pharmacy 52.5 ml/min; Est GFR (African American) 48.4 ml/min; Est GFR (Non-African American) 41.8 ml/min; Potassium 4.5 mmol/L (3.5-5.1)
[2023-05-19] MEDS ORDERED: STAT IV/IM STA (15:39)
[2023-05-19] MEDS: CALCIUM GLUCONATE 10% 1,000 MG in SODIUM CHLOR 0.9% MINI-B 50 ML IV SCH (15:55)
[2023-05-19] MEDS: ALBUMIN 25% 25 GM/100 ML VIAL IV SCH (15:55)
[2023-05-19] MEDS: ACETAMINOPHEN 325 MG TAB PO PRN (16:08)
[2023-05-19] MEDS: MIDODRINE HCL 10 MG TAB PO SCH (16:30)
[2023-05-19] MEDS ORDERED: HEPARIN SOD 5,000 UNIT/0.5 ML VIAL SQ SCH (21:00)
[2023-05-20 04:55] LABS: BUN Creatinine Ratio 15.3 (10-20); Calcium 8.7 mg/dl (8.6-10.3); Creatinine Clr Calc Pharmacy 54.3 ml/min; Est GFR (African American) 50.1 ml/min; Est GFR (Non-African American) 43.2 ml/min; Magnesium 2.2 mg/dl (1.7-2.4)
[2023-05-20 04:58] LABS: Hematocrit (blood only) 38.6 % (42.0-52.0); Hemoglobin 13.2 g/dl (14.0-18.0); Mean Corpuscular Hemoglobin 29.9 pg (25.0-34.0); Mean Corpuscular Hgb Conc 34.2 g/dL (32.0-36.0); Mean Corpuscular Volume 87.3 fL (80.0-100.0); Mean Platelet Volume 10.6 fL (9.4-12.4); Platelet Count 172 K/uL (130-400); RDW Coefficient of Variation 15.3 % (11.5-14.5); RDW Standard Deviation 48.8 fL (36.4-46.3); Red Blood Count 4.42 M/uL (4.70-6.10); White Blood Count 42.68 K/ul (4.8-10.8)
--- NOTE | 2023-05-20 08:04 | Critical Care Progress Note ---
Date of Service May 20, 2023 Assessment & Plan (1) Sepsis: (2) Influenza A (H1N1): (3) Lactic acidosis: (4) Acute respiratory failure with hypoxia: (5) Renal failure: Plan Impression: 52-year-old male with moderate to severe asthma although PFTs are not available admitted with influenza H1 N1, hypoxemic respiratory failure, lactic acidosis, acute renal failure, and septic shock resolved with IV fluids. His lactate is clearing and his sensorium is also significantly improved. He was observed overnight in the intensive care unit with improvement in his parameters. Recommendations: 1. Neurologic: No current issues. PT and OT evaluations given instability getting to the restroom 2. Cardiovascular: Severe sepsis with septic shock: Resolved with IV fluids. Blood pressure now normal. Was placed on stress dose steroids given his acute illness. Can wean midodrine to off as blood pressure stabilizes 3. Pulmonary: History of severe asthma with steroid dependency over the last 4 weeks. Continue budesonide and Perforomist as well as Incruse to compensate for the patient's outpatient Trelegy. Wean oxygen as tolerated. CT of the chest demonstrated dense basilar consolidations, unclear if these are infectious or noninfectious. 4. GI: No current issues. Advancing diet as tolerated. PPI 5. Renal: Acute renal failure likely prerenal in etiology. Improving. Continue to follow. Volume status acceptable. Electrolytes appropriate. Discontinue Umana catheter 6. Endocrine: Glycemic control per protocol. Would wean hydrocortisone and Florinef to off over the next 3 to 5 days 7. ID: Influenza H1 N 1, on oseltamavir. Day #2 cefepime Flagyl for empiric antibiotics. CT scan does show dense by basilar pulmonary infiltrates which could be infectious. The patient has very poor dentition which would also be a potential source. Consider Panorex and dental evaluation. Although his white count is elevated, his fever curve is normal but his procalcitonin remains elevated. Review of his labs from [facility] in the setting of his cholecystectomy did reveal a chronically elevated white blood cell count and this raises the potential of possible noninfectious etiologies for his leukocytosis. Will ask pathology to perform peripheral smear. The degree of his white blood cell count does not appear to correlate with his infectious symptoms. Formal hematology consultation may be beneficial. Doubt Pseudomonas and antibiotics could be de-escalated down to oral Augmentin 8. Heme-onc: Profound leukemoid reaction. While this may be infectious, other etiologies would also need to be considered. Check LDH The above recommendations and plan were discussed with the patient as well as with his family at bedside and the admitting service. Patient's critical care issues have stabilized/resolved and the patient is stable to transfer to the [facility] or. Critical care services will sign off. Feel free to contact us with questions or concerns Admission and Anticipated Discharge Date Admission Date: May 19, 2023 Subjective Patient seen and examined. EMR reviewed. Discussed with critical care nurse at bedside as well as with patient and spouse at bedside. The patient is doing well clinically. His low blood pressure issues have resolved. He is breathing well with no respiratory distress. He denies chest pain or palpitations. He tolerated a diet. He was able to ambulate to the commode without difficulty. He has not had any syncope or presyncope. No nausea or vomiting. No abdominal pain. He overall feels improved. Review of Systems Review of Systems: All systems reviewed & are unremarkable except as noted in Subjective Physical Exam Constitutional: WD/WN, vitals as above Neck: trachea midline, no thyromegaly Respiratory: normal respiratory effort, lungs clear to auscultation Cardiovascular: RRR, no murmur, no edema Gastrointestinal (Abdomen): normal bowel sounds, soft, nontender, no hepatosplenomegaly Musculoskeletal: Extremities: extremities normal to inspection Lymphatic: no cervical lymphadenopathy Results & Data Results & Data Vital Signs (Past 12 Hours) Vital Signs Temp Pulse Pulse Resp BP BP Pulse Ox 05/20/23 07:38 82 16 96 05/20/23 07:02 36.7 C 92 H 18 122/85 96 05/20/23 07:00 05/20/23 03:13 95 H 18 96 05/19/23 23:07 89 18 96 05/19/23 23:00 86 15 95 05/19/23 23:00 114/82 05/19/23 22:00 95 H 19 95 05/19/23 22:00 119/67 05/19/23 21:30 105/77 05/19/23 21:30 94 H 18 95 05/19/23 21:00 99 H 20 95 05/19/23 21:00 110/75 05/19/23 20:30 112/66 05/19/23 20:30 96 H 19 95 05/19/23 20:10 05/19/23 20:09 88 15 94 05/19/23 20:08 36.8 C 97 H 18 103/70 97 05/19/23 20:00 103/70 05/19/23 20:00 94 H 21 93 O2 Del Method O2 Flow Rate FiO2 05/20/23 07:38 Nasal Cannula 2 05/20/23 07:02 Nasal Cannula 2 05/20/23 07:00 Nasal Cannula 2 05/20/23 03:13 Nasal Cannula 2 05/19/23 23:07 Nasal Cannula 2 05/19/23 23:00 05/19/23 23:00 05/19/23 22:00 05/19/23 22:00 05/19/23 21:30 05/19/23 21:30 05/19/23 21:00 05/19/23 21:00 05/19/23 20:30 05/19/23 20:30 05/19/23 20:10 Nasal Cannula 2 05/19/23 20:09 Nasal Cannula 2 05/19/23 20:08 Nasal Cannula 2 05/19/23 20:00 05/19/23 20:00 Critical Care Results & Data Vital Signs (Past 12 Hours) Vital Signs Temp Pulse Pulse Resp BP BP Pulse Ox 05/20/23 07:38 82 16 96 05/20/23 07:02 36.7 C 92 H 18 122/85 96 05/20/23 07:00 05/20/23 03:13 95 H 18 96 05/19/23 23:07 89 18 96 05/19/23 23:00 86 15 95 05/19/23 23:00 114/82 05/19/23 22:00 95 H 19 95 05/19/23 22:00 119/67 05/19/23 21:30 105/77 05/19/23 21:30 94 H 18 95 05/19/23 21:00 99 H 20 95 05/19/23 21:00 110/75 05/19/23 20:30 112/66 05/19/23 20:30 96 H 19 95 05/19/23 20:10 05/19/23 20:09 88 15 94 05/19/23 20:08 36.8 C 97 H 18 103/70 97 05/19/23 20:00 103/70 05/19/23 20:00 94 H 21 93 O2 Del Method O2 Flow Rate FiO2 05/20/23 07:38 Nasal Cannula 2 05/20/23 07:02 Nasal Cannula 2 05/20/23 07:00 Nasal Cannula 2 05/20/23 03:13 Nasal Cannula 2 05/19/23 23:07 Nasal Cannula 2 05/19/23 23:00 05/19/23 23:00 05/19/23 22:00 05/19/23 22:00 05/19/23 21:30 05/19/23 21:30 05/19/23 21:00 05/19/23 21:00 05/19/23 20:30 05/19/23 20:30 05/19/23 20:10 Nasal Cannula 2 05/19/23 20:09 Nasal Cannula 2 05/19/23 20:08 Nasal Cannula 2 05/19/23 20:00 05/19/23 20:00 Lab & Micro Results (Past 24 Hours) RBC 4.42 M/uL (4.70-6.10) L 05/20/23 WBC 42.68 K/ul (4.8-10.8) H* 05/20/23 Hgb 13.2 g/dl (14.0-18.0) L 05/20/23 Hct 38.6 % (42.0-52.0) L 05/20/23 MCV 87.3 fL (80.0-100.0) 05/20/23 MCH 29.9 pg (25.0-34.0) 05/20/23 MCHC 34.2 g/dL (32.0-36.0) 05/20/23 RDW Standard Deviation 48.8 fL (36.4-46.3) H 05/20/23 RDW Coefficient of Variation 15.3 % (11.5-14.5) H 05/20/23 Plt Count 172 K/uL (130-400) 05/20/23 MPV 10.6 fL (9.4-12.4) 05/20/23 Na 137 mmol/L (136-145) 05/20/23 K 4.0 mmol/L (3.5-5.1) 05/20/23 Cl 106 mmol/L (98-107) 05/20/23 CO2 20 mmol/L (21-32) L 05/20/23 Anion Gap 11 (3-11) 05/20/23 BUN 27 mg/dl (6-23) H 05/20/23 Creatinine 1.77 mg/dl (0.6-1.4) H 05/20/23 Estimated GFR ( Amer) 50.1 ml/min 05/20/23 Estimated GFR (Non-Af Amer) 43.2 ml/min 05/20/23 BUN/Creatinine Ratio 15.3 (10-20) 05/20/23 Glu 171 mg/dl (70-99(Fasting)) H 05/20/23 Ca 8.7 mg/dl (8.6-10.3) 05/20/23 Mg 2.2 mg/dl (1.7-2.4) 05/20/23 03:46 Calcium Level 8.7 mg/dl (8.6-10.3) 05/20/23 03:46 Diagnostic Findings (Past 24 Hours) Chest CTA 05/19/23 08:56 CT angio chest PE protocol CLINICAL HISTORY: PE TECHNIQUE: Multidetector row helical CT of the chest was performed with angiographic protocol. Coronal and sagittal reformations were obtained. Coronal and sagittal MIPS were obtained from the axial data set and were submitted for review. Automated dose lowering techniques and/or adjustment according to patient size were utilized for this exam. CT DOSE: 2357.25 mGy.cm Comparison: None available at the time of this dictation. FINDINGS: Lungs and pleura: Bilateral lower lung predominant airspace opacities are seen. Bronchial wall thickening is seen. Heart and pericardium: Heart size is normal. No pericardial effusion. Vessels: No evidence of pulmonary embolism. Mediastinum and ira: Subcentimeter lymph nodes are seen. Chest wall and lower neck: Unremarkable. Abdomen: For findings below the diaphragm, please refer to CT of the abdomen dated the same. Bones: Degenerative changes in the thoracic spine. IMPRESSION: 1. No pulmonary embolus. 2. Prominent airspace opacities in the lower lungs and bronchial wall thickening compatible with pneumonia and airways disease ACT 112: Negative or not required by law. Electronically signed by: Tong Ramsey M.D. 05/19/2023 11:39 AM Abdomen/Pelvis CT 05/19/23 09:45 CT SCAN OF THE ABDOMEN AND PELVIS WITH IV CONTRAST CLINICAL HISTORY: Sepsis. COMPARISON STUDY: No priors. TECHNIQUE: Following the IV administration of 119 cc of Optiray 320, CT scan of the abdomen and pelvis is performed from the lung bases to the proximal femora. Images are reviewed in the axial, sagittal, and coronal planes. IV contrast was administered without complication. A dose lowering technique was utilized adhering to the principles of ALARA. FINDINGS: Lung bases: The heart is normal in size and without pericardial effusion. There are small pleural effusions with bibasilar consolidation. Liver: The contrast-enhanced liver is normal in size, contour, and attenuation. There is mild intrahepatic biliary ductal dilatation. The hepatic veins and portal veins are patent. Periportal edema is noted. Gallbladder: Surgically absent noting clips in the gallbladder fossa. There is mild thickening and enhancement of the common bile duct wall. Spleen: The spleen is enlarged measuring 14.4 cm in length. Pancreas: Unremarkable. Adrenal glands: Unremarkable. Kidneys: The contrast enhanced kidneys are normal in size and without hydronephrosis. The kidneys enhance symmetrically. There are bilateral nonobstructing renal calculi which measure up to 4 mm. Abdominal vasculature: The abdominal aorta is normal in course and caliber. Bowel: There is moderate colonic fecal retention. No bowel obstruction is seen. The appendix is well-visualized and normal. Peritoneum: There is no intraperitoneal free air or abdominal ascites. There is laxity ventral abdominal wall with protrusion of abdominal contents. Lymphadenopathy: None. Pelvic viscera: The prostate is mildly enlarged and heterogeneous. The bladder is partially decompressed and a Umana catheter. The wall appears thickened/trabeculated indicating chronic outlet obstruction. Skeletal structures: There is mild lumbosacral spondylosis. No lytic or blastic lesions are seen. Avascular necrosis is noted in the left femoral head. There are chronic/healed bilateral rib fractures. IMPRESSION: 1. There are small pleural effusions with dense bibasilar consolidation. The appearance is typical for pneumonia/aspiration pneumonitis. Clinical correlation will be required and radiographic follow-up to resolution is recommended. 2. There is mild intrahepatic biliary ductal dilatation, with mild thickening and enhancement of the common bile duct wall. Correlate with clinical findings and liver function studies. 3. Bilateral nephrolithiasis. 4. There is avascular necrosis of the left femoral head. 5. Splenomegaly. 6. Additional findings as above. ACT 112: Negative or not required by law. Electronically signed by: Farhat Murray M.D. 05/19/2023 11:58 AM I & O Totals 24 Hours 05/19/23 05/20/23 05/21/23 06:59 06:59 07:59 Intake Total 5902.084 / 5902.084 Output Total 2600 / 2600 Balance 3302.084 / 3302.084 Cumulative 05/19/23 06:16 thru 05/20/23 04:03 Intake Total 5902.084 Output Total 2600 Balance 3302.084 RT Ventilator Mngmt (Last Documented) Ventilator Ordered Settings Respiratory Rate 16 05/20/23 07:38 Fraction of Inspired Oxygen 2 05/19/23 20:09 Ventilator - PT Measurements Respiratory Rate 16 Coding Level of Care Code 30719 SUB INP/OBS CARE 3/50MIN Diagnoses Sepsis A41.9; R65.20; J96.01 Acute respiratory failure type: with hypoxia Sepsis acute organ dysfunction status: with acute organ dysfunction Sepsis type: sepsis due to unspecified organism Severe sepsis acute organ dysfunction type: acute respiratory failure Severe sepsis shock status: unspecified Influenza A (H1N1) J10.1 Lactic acidosis E87.20 Acute respiratory failure with hypoxia J96.01 Renal failure N19 (1) Sepsis Acute respiratory failure type: with hypoxia Sepsis acute organ dysfunction status: with acute organ dysfunction Sepsis type: sepsis due to unspecified organism Severe sepsis acute organ dysfunction type: acute respiratory failure Severe sepsis shock status: unspecified Qualified Code(s): A41.9 - Sepsis, unspecified organism; R65.20 - Severe sepsis without septic shock; J96.01 - Acute respiratory failure with hypoxia
--- NOTE | 2023-05-20 08:31 | Hospitalist Progress Note ---
Date of Service May 20, 2023 Assessment & Plan (1) Acute respiratory failure with hypoxia: (2) Sepsis: (3) Rhinovirus infection: (4) Lactic acidosis: (5) Hypotension: (6) Septic shock: Plan Pt is a 52-year-old male with PMHx of asthma, non-smoker, who presents to the hospital with increased work of breathing, dyspnea on exertion, increased confusion for the past day [employer]. He has had resp symptoms for about 4 weeks. Initially placed on steroids and antibiotic x 2 weeks, then another round of slow taper prednisone (currently on 20 mg daily). Sepsis Pneumonia, possible aspiration Complicated UTI Hx of Asthma Pt presenting with AMS, increased oxygen requirement Tachycardic with leukocytosis, increased RR with likely pulmonary infectious source Lactate of 3.0, down to 2.6 with fluid resuscitation Procalcitonin persistently elevated 21.1-->31.9 Chest XR with noted mild cardiomegaly, pulm vascular congestion, small pleural effusions Chest CTA no PE, but notable for pneumonia and airways disease CT abd/pelvis noting pneumonia, mild intrahepatic biliary ductal dilatation, mild thickening and enhancement of the common bile duct wall, kidney stones, splenomegaly, avascular necrosis of left femoral head. UA suggestive of infection, urine Cx NGTD Blood Cx NGTD Was started on Zosyn in the ED and developed a rash Transitioned to empiric Flagyl and Cefepime, has since been transitioned to po Augmentin in the ICU Speech consult for possibility of aspiration Continue to monitor and follow cultures Septic Shock BP was persistently low on admission Admitted to the ICU for consideration of pressor support Was treated with IV Hydrocortisone 50mg q6h and Florinef 0.1 daily for stress steroid dosing Was also started on midodrine 10mg TID BP currently stable Consider weaning steroids and midodrine Acute hypoxic Respiratory Failure Viral infections-Enterovirus, H1N1 2009 Flu Pt with increased oxygen need on admission, oxymask 6L Hx of asthma Received dose of Solumedrol 125mg in the ED Treated with Tamiflu in the ICU Duonebs scheduled pt on Trelegy inhaler at home, formulary alternative Supportive viral treatments otherwise Oxygen supplementation as needed, wean as tolerated Continue to monitor Acute metabolic Encephalopathy Pt confused with altered mental status on admission Likely in setting of sepsis above VBG with no noted hypercapnia currently very much improved Continue to monitor Acute Kidney Injury Cr elevated at 1.54 on admission Subsequently downtrending Continue to monitor Electrolyte Abnormalities Hypophosphatemia- replete as needed Hypomagnesemia- replete as needed Elevated Trop Cardiomegaly hs-trop elevated at 21.6 to 21.5 to 13.1 EKG noting sinus tach Echo with EF 50-55%, mild LVH Likely demand in setting of above, doubt ACS Intrahepatic biliary ductal dilatation mild thickening and enhancement of the common bile duct wall Elevated liver enzymes Noted on CT abd/pelvis T bili elevated on admission, currently wnl pt s/p cholecystectomy last year Liver US ordered Follow liver enzymes Avascular Necrosis of L femoral head Noted on CT abd/pelvis Outpt orthopedic follow up Nephrolithiasis Noted on CT abd pelvis Nonobstructing Continue to monitor, pcp f/u Splenomegaly Pt with enlarged spleen Likely chronic peripheral smear pending PCP follow up Leukocytosis Significant leukocytosis on admission WBC 43K to 42K Pt has been on chronic steroids, current infection, however significantly elevated peripheral smear pending Denies cancer Hx hematology consult placed for further recs Hyperglycemia Glucose levels elevated Pt on chronic steroids AM [id number] pending Anemia Hgb down from 16 to 13 Possibly dilutional AM iron level, ferritin, b12 and folate pending Left axillary rash Desenex ordered CODE STATUS: Full code Diet: regular DVT prophylaxis: On lovenox Dispo: PT/OT ordered Admission and Anticipated Discharge Date Admission Date: May 19, 2023 Subjective Pt was seen while still down in the ICU. Partner at bedside. Was alert and oriented States that he is feeling much better Review of Systems Review of Systems: All systems reviewed & are unremarkable except as noted in Subjective Physical Exam Physical Exam: General: Alert, oriented. No acute distress Skin: left axillary skin rash Psych: Appropriate mood and affect Neuro: No gross deficits HEENT: NC/AT Chest: Nontender to palpation. CV: RRR Resp: Breath sounds coarse bilaterally, no increased effort of breathing. Abdomen: protuberant Extremities: No edema in lower extremities bilaterally. Results & Data Results & Data Vital Signs (Past 12 Hours) Vital Signs Temp Pulse Pulse Resp BP BP Pulse Ox 05/20/23 07:38 82 16 96 05/20/23 07:02 36.7 C 92 H 18 122/85 96 05/20/23 07:00 05/20/23 03:13 95 H 18 96 05/19/23 23:07 89 18 96 05/19/23 23:00 86 15 95 05/19/23 23:00 114/82 05/19/23 22:00 95 H 19 95 05/19/23 22:00 119/67 05/19/23 21:30 105/77 05/19/23 21:30 94 H 18 95 05/19/23 21:00 99 H 20 95 05/19/23 21:00 110/75 O2 Del Method O2 Flow Rate 05/20/23 07:38 Nasal Cannula 2 05/20/23 07:02 Nasal Cannula 2 05/20/23 07:00 Nasal Cannula 2 05/20/23 03:13 Nasal Cannula 2 05/19/23 23:07 Nasal Cannula 2 05/19/23 23:00 05/19/23 23:00 05/19/23 22:00 05/19/23 22:00 05/19/23 21:30 05/19/23 21:30 05/19/23 21:00 05/19/23 21:00 Diagnostic Findings Chest X-Ray 05/19/23 06:21 XR chest 1V portable HISTORY: 52 years-old Male Dyspnea acute shortness breath COMPARISON: None TECHNIQUE: AP view of the chest FINDINGS: Cardiac silhouette is enlarged. Congestion and pulmonary vascular congestion. Chronic right-sided rib fractures. No pneumothorax. Small pleural effusions with left greater than right bibasilar consolidation. Bones appear grossly intact. IMPRESSION: 1. Mild cardiomegaly with pulmonary vascular congestion. 2. Small pleural effusions with left greater than right bibasilar consolidation. Correlate clinically to exclude pneumonia. ACT 112: Negative or not required by law. The above report was generated using voice recognition software. It may contain grammatical, syntax or spelling errors. Electronically signed by: Esteban Barbosa M.D. 05/19/2023 7:00 AM Chest CTA 05/19/23 08:56 CT angio chest PE protocol CLINICAL HISTORY: PE TECHNIQUE: Multidetector row helical CT of the chest was performed with angiographic protocol. Coronal and sagittal reformations were obtained. Coronal and sagittal MIPS were obtained from the axial data set and were submitted for review. Automated dose lowering techniques and/or adjustment according to patient size were utilized for this exam. CT DOSE: 2357.25 mGy.cm Comparison: None available at the time of this dictation. FINDINGS: Lungs and pleura: Bilateral lower lung predominant airspace opacities are seen. Bronchial wall thickening is seen. Heart and pericardium: Heart size is normal. No pericardial effusion. Vessels: No evidence of pulmonary embolism. Mediastinum and ira: Subcentimeter lymph nodes are seen. Chest wall and lower neck: Unremarkable. Abdomen: For findings below the diaphragm, please refer to CT of the abdomen dated the same. Bones: Degenerative changes in the thoracic spine. IMPRESSION: 1. No pulmonary embolus. 2. Prominent airspace opacities in the lower lungs and bronchial wall thickening compatible with pneumonia and airways disease ACT 112: Negative or not required by law. Electronically signed by: Tong Ramsey M.D. 05/19/2023 11:39 AM Abdomen/Pelvis CT 05/19/23 09:45 CT SCAN OF THE ABDOMEN AND PELVIS WITH IV CONTRAST CLINICAL HISTORY: Sepsis. COMPARISON STUDY: No priors. TECHNIQUE: Following the IV administration of 119 cc of Optiray 320, CT scan of the abdomen and pelvis is performed from the lung bases to the proximal femora. Images are reviewed in the axial, sagittal, and coronal planes. IV contrast was administered without complication. A dose lowering technique was utilized adhering to the principles of ALARA. FINDINGS: Lung bases: The heart is normal in size and without pericardial effusion. There are small pleural effusions with bibasilar consolidation. Liver: The contrast-enhanced liver is normal in size, contour, and attenuation. There is mild intrahepatic biliary ductal dilatation. The hepatic veins and portal veins are patent. Periportal edema is noted. Gallbladder: Surgically absent noting clips in the gallbladder fossa. There is mild thickening and enhancement of the common bile duct wall. Spleen: The spleen is enlarged measuring 14.4 cm in length. Pancreas: Unremarkable. Adrenal glands: Unremarkable. Kidneys: The contrast enhanced kidneys are normal in size and without hydronephrosis. The kidneys enhance symmetrically. There are bilateral nonobstructing renal calculi which measure up to 4 mm. Abdominal vasculature: The abdominal aorta is normal in course and caliber. Bowel: There is moderate colonic fecal retention. No bowel obstruction is seen. The appendix is well-visualized and normal. Peritoneum: There is no intraperitoneal free air or abdominal ascites. There is laxity ventral abdominal wall with protrusion of abdominal contents. Lymphadenopathy: None. Pelvic viscera: The prostate is mildly enlarged and heterogeneous. The bladder i s partially decompressed and a Umana catheter. The wall appears thickened/trabeculated indicating chronic outlet obstruction. Skeletal structures: There is mild lumbosacral spondylosis. No lytic or blastic lesions are seen. Avascular necrosis is noted in the left femoral head. There are chronic/healed bilateral rib fractures. IMPRESSION: 1. There are small pleural effusions with dense bibasilar consolidation. The appearance is typical for pneumonia/aspiration pneumonitis. Clinical correlation will be required and radiographic follow-up to resolution is recommended. 2. There is mild intrahepatic biliary ductal dilatation, with mild thickening and enhancement of the common bile duct wall. Correlate with clinical findings and liver function studies. 3. Bilateral nephrolithiasis. 4. There is avascular necrosis of the left femoral head. 5. Splenomegaly. 6. Additional findings as above. ACT 112: Negative or not required by law. Electronically signed by: Farhat Murray M.D. 05/19/2023 11:58 AM Chest X-Ray 05/20/23 07:00 XR chest 1V portable CLINICAL HISTORY: Resp failure TECHNIQUE: Single frontal radiograph of the chest was obtained. Comparison: Comparison is made to chest radiograph 05/19/2023 FINDINGS: No lines and tubes are seen. The cardiomediastinal silhouette is normal. Bilateral lower lung airspace opacity has improved from prior exam. No evidence of pleural effusion or pneumothorax. IMPRESSION: Interval mild improvement in bilateral lower lung airspace opacity. ACT 112: Negative or not required by law. Electronically signed by: Tong Ramsey M.D. 05/20/2023 9:29 AM (2) Sepsis Acute respiratory failure type: with hypoxia Sepsis acute organ dysfunction status: with acute organ dysfunction Sepsis type: sepsis due to unspecified organism Severe sepsis acute organ dysfunction type: acute respiratory failure Severe sepsis shock status: unspecified Qualified Code(s): A41.9 - Sepsis, unspecified organism; R65.20 - Severe sepsis without septic shock; J96.01 - Acute respiratory failure with hypoxia
[2023-05-20] MEDS ORDERED: VANCOMYCIN HCL 1,500 MG in SODIUM CHLORIDE 0.9% 500 ML IV SCH (09:00)
--- NOTE | 2023-05-20 09:32 | XRay Report ---
XR chest 1V portable CLINICAL HISTORY: Resp failure TECHNIQUE: Single frontal radiograph of the chest was obtained. Comparison: Comparison is made to chest radiograph 05/19/2023 FINDINGS: No lines and tubes are seen. The cardiomediastinal silhouette is normal. Bilateral lower lung airspac e opacity has improved from prior exam. No evidence of pleural effusion or pneumothorax. IMPRESSION: Interval mild improvement in bilateral lower lung airspace opacity. ACT 112: Negative or not required by law. Electronically signed by: Tong Ramsey M.D. 05/20/2023 9:29 AM
[2023-05-20] MEDS: AMOXICILLIN/CLAVULANATE 875 MG TAB PO SCH (16:23)
[2023-05-20] MEDS: MIDODRINE HCL 2.5 MG TAB PO SCH (17:37)
[2023-05-20] MEDS: OSELTAMIVIR PHOSPHATE SUSP 30 MG/5 ML UDP PO SCH (22:27)
[2023-05-21 05:32] LABS: Hematocrit (blood only) 37.4 % (42.0-52.0); Hemoglobin 12.4 g/dl (14.0-18.0); Mean Corpuscular Hemoglobin 29.6 pg (25.0-34.0); Mean Corpuscular Hgb Conc 33.2 g/dL (32.0-36.0); Mean Corpuscular Volume 89.3 fL (80.0-100.0); Mean Platelet Volume 11.1 fL (9.4-12.4); Platelet Count 168 K/uL (130-400); RDW Coefficient of Variation 15.3 % (11.5-14.5); Red Blood Count 4.19 M/uL (4.70-6.10); White Blood Count 34.79 K/ul (4.8-10.8)
[2023-05-21 06:04] LABS: Albumin Globulin Ratio 1.3 (0.9-2); Albumin Level 3.3 gm/dl (3.4-5.0); BUN Creatinine Ratio 26.5 (10-20); Bilirubin,Total 0.5 mg/dl (0.2-1.0); Calcium 8.9 mg/dl (8.6-10.3); Creatinine Clr Calc Pharmacy 82.1 ml/min; Est GFR (African American) 82.6 ml/min; Est GFR (Non-African American) 71.3 ml/min; Globulin 2.5 gm/dl (2.5-4.0); Magnesium 2.1 mg/dl (1.7-2.4); Phosphorus 2.4 mg/dl (2.5-4.9); Potassium 3.7 mmol/L (3.5-5.1); Total Protein 5.8 gm/dl (6.0-8.3)
[2023-05-21 06:21] LABS: Basophils % (auto) 0.3 %; Immature Granulocytes # (auto) 0.87 K/uL (0.01-0.20); Immature Granulocytes % (auto) 2.5 %; Lymphocytes # (auto) 0.91 K/uL (1.20-3.40); Lymphocytes % (auto) 2.6 %; Monocytes # (auto) 1.29 K/uL (0.11-0.59); Monocytes % (auto) 3.7 %; Neutrophils # (auto) 31.62 K/uL (1.40-6.50); Neutrophils % (auto) 90.9 %
[2023-05-21] MEDS ORDERED: OSELTAMIVIR PHOSPHATE SUSP 75 MG/12.5 ML UDP PO SCH (09:00)
[2023-05-21] MEDS ORDERED: MICONAZOLE NITRATE POWDER 85 GM EXT PRN (10:39)
[2023-05-21] MEDS: FLUTICASONE/VILANTEROL 200/25MCG 14 PUFFS/INHALER INH SCH (11:44)
[2023-05-21] MEDS: UMECLIDINIUM BROMIDE 62.5MCG/BLISTER 7 PUFFS/INHALER INH SCH (11:45)
[2023-05-21] MEDS: THIAMINE HCL 200 MG in SODIUM CHLORIDE 0.9% 50 ML IV SCH (11:46)
[2023-05-21] MEDS: OSELTAMIVIR PHOSPHATE 75 MG CAP PO SCH (12:41)
--- NOTE | 2023-05-21 13:14 | Oncology Consultation ---
Date of Consultation May 21, 2023 Assessment & Plan (1) Leukocytosis: The patient's leukocytosis is multifactorial. Predominantly it is related to the recent use of systemic steroids including oral prednisone. Currently he is still on prednisone taper. The other cause for leukocytosis could be the underlying sepsis. At this point I will refrain from invasive testing such as bone marrow biopsy genomic testing as there is a clear-cut cause of the patient's leukocytosis. I will just check a peripheral smear and will wait for our pathology colleagues opinion. I do not think that the patient has an underlying hematological abnormalities unrelated to his medications or infection. Plan Thank you for this interesting hematological consult, hematology will continue to follow the patient and make appropriate recommendations. A total of 60 minutes was spent in counseling, coordination of care and review of prior records. History of Present Illness Reason for Consultation: Leukocytosis Attending Physician: Noa Mitchell MD History of Present Illness The patient is a very pleasant 52-year-old man with a past history of bronchial asthma which has been poorly controlled. He follows with senior games technician Dr. Shoemaker in [place]. Per my discussion with the patient he was recently started on prednisone with a taper given his poorly controlled asthma. He was admitted to [facility] couple of days ago with concerns of underlying sepsis. At admission he was noted to have elevated white count with a WBC count of 42,000/mcL. Predominantly left shifted. Hematology has been consulted to assist in management of this patient with leukocytosis. During my visit to the patient he was doing well. Reported no fever chills or night sweats he reported no nausea vomiting. Appetite is good. He has not been febrile since admission. Allergies Allergy/AdvReac Type Severity Reaction Status Date / Time piperacillin [From Zosyn] Allergy Intermediate Hives Unverified 05/19/23 10:35 tazobactam [From Zosyn] Allergy Intermediate Hives Unverified 05/19/23 10:35 fish oil Allergy Hives Verified 05/19/23 10:25 diphenhydramine AdvReac Agitated Verified 05/19/23 10:25 [From Benadryl] Home Medications Medication Instructions Recorded Confirmed Type acetaminophen 500 mg tablet 500 mg PO Q6H PRN pain/fever 05/19/23 05/19/23 History albuterol sulfate 1.25 mg/3 mL 1.25 mg continuous nebulization 05/19/23 05/19/23 History solution for nebulization Q4H PRN Breathing Problems albuterol sulfate 90 mcg/actuation 2 puff inhalation Q4H PRN 05/19/23 05/19/23 History aerosol inhaler Breathing Problems fluticasone fur. 200 mcg-umeclid 1 inh inhalation QAM 05/19/23 05/19/23 History 62.5 mcg-vilant 25 mcg inhalat.powder (Trelegy Ellipta) ibuprofen 200 mg tablet 200 mg PO Q6H PRN Pain 05/19/23 05/19/23 History montelukast 10 mg tablet 10 mg PO HS 05/19/23 05/19/23 History naproxen 500 mg tablet,delayed 500 mg PO BID PRN pain in knees 05/19/23 05/19/23 History release prednisone 10 mg tablet See Rx Instructions .Route .COMPLEX 05/19/23 05/19/23 History tramadol 50 mg tablet 50 mg PO Q8H PRN Severe Pain 05/19/23 05/19/23 History (Scale Score 7-10) Patient History Medical History Asthma Surgical History No pertinent past surgical history Social History Smoking Status: Never smoker Hx Alcohol Use: Yes Alcohol type: wine Hx Substance Use: No Preferred Language: [place] Communication Ability: Effective Manager Environmental Health Required: No Beliefs That Will Affect Care: None Current Living Situation: Spouse Feels Safe at Home: Yes Assistive Devices: Nebulizer Results & Data Vital Signs (Past 12 Hours) Vital Signs Temp Pulse Resp BP Pulse Ox O2 Del Method 05/21/23 12:28 142/85 H 05/21/23 11:17 36.4 C L 67 16 142/80 H 94 Room Air 05/21/23 07:45 68 20 95 Room Air 05/21/23 07:16 36.4 C L 74 16 128/77 95 Room Air 05/21/23 04:15 79 18 96 Room Air 05/21/23 04:02 36.6 C 73 16 116/72 95 Room Air
--- NOTE | 2023-05-21 15:01 | Hospitalist Progress Note ---
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 Initially placed on steroids and antibiotic x 2 weeks, then another round of slow taper prednisone (currently on 20 mg daily). Sepsis Pneumonia, possible aspiration Complicated UTI Hx of Asthma Pt presenting with AMS, increased oxygen requirement Tachycardic with leukocytosis, increased RR with likely pulmonary infectious source Lactate of 3.0, down to 2.6 with fluid resuscitation Procalcitonin persistently elevated 21.1-->31.9 Chest XR with noted mild cardiomegaly, pulm vascular congestion, small pleural effusions Chest CTA no PE, but notable for pneumonia and airways disease CT abd/pelvis noting pneumonia, mild intrahepatic biliary ductal dilatation, mild thickening and enhancement of the common bile duct wall, kidney stones, splenomegaly, avascular necrosis of left femoral head. UA suggestive of infection, urine Cx NGTD Blood Cx NGTD Was started on Zosyn in the ED and developed a rash Transitioned to empiric Flagyl and Cefepime, has since been transitioned to po Augmentin in the ICU Speech consult for possibility of aspiration Continue to monitor and follow cultures Septic Shock BP was persistently low on admission Admitted to the ICU for consideration of pressor support Was treated with IV Hydrocortisone 50mg q6h and Florinef 0.1 daily for stress steroid dosing Was also started on midodrine 10mg TID BP currently stable Consider weaning steroids and midodrine Acute hypoxic Respiratory Failure Viral infections-Enterovirus, H1N1 2009 Flu Pt with increased oxygen need on admission, oxymask 6L Hx of asthma Received dose of Solumedrol 125mg in the ED Treated with Tamiflu in the ICU Duonebs scheduled pt on Trelegy inhaler at home, formulary alternative Supportive viral treatments otherwise Oxygen supplementation as needed, wean as tolerated Continue to monitor Acute metabolic Encephalopathy Pt confused with altered mental status on admission Likely in setting of sepsis above VBG with no noted hypercapnia currently very much improved Continue to monitor Lactic Acidosis Lactate persistently elevated 3.0 to 2.6 on May 18 On May 20- lactate 2.5 then down to 1.9 after IV thiamine Currently resolved Acute Kidney Injury Cr elevated at 1.54 on admission Subsequently downtrending Continue to monitor Currently resolved Electrolyte Abnormalities Hypophosphatemia- replete as needed Hypomagnesemia- replete as needed Elevated Trop Cardiomegaly hs-trop elevated at 21.6 to 21.5 to 13.1 EKG noting sinus tach Echo with EF 50-55%, mild LVH Likely demand in setting of above, doubt ACS Intrahepatic biliary ductal dilatation mild thickening and enhancement of the common bile duct wall Elevated liver enzymes Noted on CT abd/pelvis T bili elevated on admission, currently wnl pt s/p cholecystectomy last year Liver US ordered Follow liver enzymes Avascular Necrosis of L femoral head Noted on CT abd/pelvis Outpt orthopedic follow up Nephrolithiasis Noted on CT abd pelvis Nonobstructing Continue to monitor, pcp f/u Splenomegaly Pt with enlarged spleen Likely chronic peripheral smear pending PCP follow up Leukocytosis Significant leukocytosis on admission WBC 43K to 42K Pt has been on chronic steroids, current infection, however significantly elevated peripheral smear pending Denies cancer Hx hematology consult placed for further recs, appreciated Hyperglycemia Glucose levels elevated Pt on chronic steroids AM hgba1c pending Anemia Hgb down from 16 to 13 Possibly dilutional AM iron level, ferritin, b12 and folate pending Left axillary rash Desenex ordered CODE STATUS: Full code Diet: regular DVT prophylaxis: On lovenox Dispo: PT/OT ordered Admission and Anticipated Discharge Date Admission Date: May 19, 2023 Subjective Pt states that he felt great. On RA. Review of Systems Review of Systems: All systems reviewed & are unremarkable except as noted in Subjective Physical Exam Physical Exam: General: Alert, oriented. No acute distress Skin: left axillary skin rash Psych: Appropriate mood and affect Neuro: No gross deficits HEENT: NC/AT Chest: Nontender to palpation. CV: RRR Resp: Breath sounds coarse bilaterally, no increased effort of breathing. Abdomen: protuberant Extremities: No edema in lower extremities bilaterally. Results & Data Results & Data Vital Signs (Past 12 Hours) Vital Signs Temp Pulse Resp BP Pulse Ox O2 Del Method 05/21/23 12:28 142/85 H 05/21/23 11:17 36.4 C L 67 16 142/80 H 94 Room Air 05/21/23 07:45 68 20 95 Room Air 05/21/23 07:16 36.4 C L 74 16 128/77 95 Room Air 05/21/23 04:15 79 18 96 Room Air 05/21/23 04:02 36.6 C 73 16 116/72 95 Room Air (2) Sepsis Acute respiratory failure type: with hypoxia Sepsis acute organ dysfunction status: with acute organ dysfunction Sepsis type: sepsis due to unspecified organism Severe sepsis acute organ dysfunction type: acute respiratory failure Severe sepsis shock status: unspecified Qualified Code(s): A41.9 - Sepsis, unspecified organism; R65.20 - Severe sepsis without septic shock; J96.01 - Acute respiratory failure with hypoxia
--- NOTE | 2023-05-21 18:44 | Ultrasound Report ---
US liver CLINICAL HISTORY: intrahep dilation, enhancement on CT TECHNIQUE: Multiple real-time sonographic images of the right upper quadrant were obtained. Comparison: None available at the time of this dictation. FINDINGS: The liver is diffusely homogenous with normal contour and echogenicity. No focal mass lesions are see n. No intrahepatic ductal dilatation is seen. Patient is status post cholecystectomy. A sonograph ic Vela's sign was not elicited by the computer systems engineer. The common duct measures 0.5 cm in diameter a t the level of the hepatic artery. The visualized portions of the pancreas appear normal. The right kidney shows normal echogenicity, cortical thickness and renal contour. The right kidney sh ows no evidence of hydronephrosis or mass. No ascites or free fluid is seen in Madrigal's pouch. IMPRESSION: No acute abnormalities, in particular no abnormal biliary ductal dilation. ACT 112: Negative or not required by law. Electronically signed by: Tong Ramsey M.D. 05/21/2023 6:43 PM
[2023-05-21] MEDS: HYDROCORTISONE SOD 50 MG in SYRINGE 0 ML IV SCH (20:07)
[2023-05-22 06:30] LABS: Hematocrit (blood only) 39.5 % (42.0-52.0); Hemoglobin 12.9 g/dl (14.0-18.0); Mean Corpuscular Hemoglobin 29.1 pg (25.0-34.0); Mean Corpuscular Hgb Conc 32.7 g/dL (32.0-36.0); Mean Corpuscular Volume 89.2 fL (80.0-100.0); Platelet Count 189 K/uL (130-400); RDW Standard Deviation 49.8 fL (36.4-46.3); Red Blood Count 4.43 M/uL (4.70-6.10); White Blood Count 26.25 K/ul (4.8-10.8)
[2023-05-22 06:45] LABS: Albumin Globulin Ratio 1.3 (0.9-2); Albumin Level 3.4 gm/dl (3.4-5.0); BUN Creatinine Ratio 29.1 (10-20); Bilirubin,Total 0.7 mg/dl (0.2-1.0); Calcium 9.3 mg/dl (8.6-10.3); Creatinine Clr Calc Pharmacy 86.5 ml/min; Est GFR (Non-African American) 76.8 ml/min; Globulin 2.6 gm/dl (2.5-4.0); Magnesium 1.8 mg/dl (1.7-2.4); Phosphorus 3.3 mg/dl (2.5-4.9); Potassium 4.1 mmol/L (3.5-5.1)
[2023-05-22 06:55] LABS: Basophils # (auto) 0.08 K/uL (0.00-0.20); Basophils % (auto) 0.3 %; Echinocytes 1+; Eosinophils # (auto) 0.02 K/uL (0.00-0.50); Eosinophils % (auto) 0.1 %; Immature Granulocytes # (auto) 0.39 K/uL (0.01-0.20); Immature Granulocytes % (auto) 1.5 %; Lymphocytes # (auto) 2.16 K/uL (1.20-3.40); Lymphocytes % (auto) 8.2 %; Monocytes # (auto) 1.02 K/uL (0.11-0.59); Monocytes % (auto) 3.9 %; Neutrophils # (auto) 22.58 K/uL (1.40-6.50); Polychromasia 1+
[2023-05-22 07:02] LABS: Folate (Folic Acid),Ser orPlas 5.44 ng/ml (>5.38)
[2023-05-22 07:03] LABS: Ferritin 315.8 ng/ml (8-388)
[2023-05-22 07:14] LABS: Estimated Average Glucose 120 mg/dl; Hemoglobin A1C 5.8 % (4.5-5.6)
[2023-05-22] MEDS: FLUDROCORTISONE ACETATE 0.1 MG TAB PO SCH (08:32)
--- NOTE | 2023-05-22 18:02 | Hospitalist Progress Note ---
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 Initially placed on steroids and antibiotic x 2 weeks, then another round of slow taper prednisone (currently on 20 mg daily). Sepsis Pneumonia, possible aspiration Complicated UTI Hx of Asthma Pt presenting with AMS, increased oxygen requirement Tachycardic with leukocytosis, increased RR with likely pulmonary infectious source Lactate of 3.0, down to 2.6 with fluid resuscitation Procalcitonin persistently elevated 21.1-->31.9 Chest XR with noted mild cardiomegaly, pulm vascular congestion, small pleural effusions Chest CTA no PE, but notable for pneumonia and airways disease CT abd/pelvis noting pneumonia, mild intrahepatic biliary ductal dilatation, mild thickening and enhancement of the common bile duct wall, kidney stones, splenomegaly, avascular necrosis of left femoral head. 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 -weaning -currently off Florinef, transitioned to hydrocortisone 50mg q12 yesterday, ordered hydrocortisone 50mg daily today Was also started on midodrine 10mg TID (currently off with inc BP) BP currently stable weaning steroids and midodrine as above Acute hypoxic Respiratory Failure Viral infections-Enterovirus, H1N1 2009 Flu Pt with increased oxygen need on admission, oxymask 6L Hx of asthma Received dose of Solumedrol 125mg in the ED Treated with Tamiflu in the ICU Duonebs scheduled pt on Trelegy inhaler at home, formulary alternative Supportive viral treatments otherwise Oxygen supplementation as needed, wean as tolerated Continue to monitor Acute metabolic Encephalopathy Pt confused with altered mental status on admission Likely in setting of sepsis above VBG with no noted hypercapnia currently very much improved Continue to monitor Lactic Acidosis Lactate persistently elevated 3.0 to 2.6 on May 18 On May 20- lactate 2.5 then down to 1.9 after IV thiamine Currently resolved Acute Kidney Injury Cr elevated at 1.54 on admission Subsequently downtrending Continue to monitor Currently resolved Electrolyte Abnormalities Hypophosphatemia- replete as needed Hypomagnesemia- replete as needed Elevated Trop Cardiomegaly hs-trop elevated at 21.6 to 21.5 to 13.1 EKG noting sinus tach Echo with EF 50-55%, mild LVH Likely demand in setting of above, doubt ACS Intrahepatic biliary ductal dilatation mild thickening and enhancement of the common bile duct wall Elevated liver enzymes Noted on CT abd/pelvis T bili elevated on admission, currently wnl pt s/p cholecystectomy last year Liver US ordered Follow liver enzymes Avascular Necrosis of L femoral head Noted on CT abd/pelvis Outpt orthopedic follow up Nephrolithiasis Noted on CT abd pelvis Nonobstructing Continue to monitor, pcp f/u Splenomegaly Pt with enlarged spleen Likely chronic peripheral smear pending PCP follow up Leukocytosis Significant leukocytosis on admission WBC 43K to 42K Pt has been on chronic steroids, current infection, however significantly elevated peripheral smear pending Denies cancer Hx hematology consult placed for further recs, appreciated Hyperglycemia Glucose levels elevated Pt on chronic steroids AM hgba1c pending Anemia Hgb down from 16 to 13 Possibly dilutional AM iron level, ferritin, b12 and folate pending Left axillary rash Desenex ordered CODE STATUS: Full code Diet: regular DVT prophylaxis: On lovenox Dispo: PT/OT ordered Admission and Anticipated Discharge Date Admission Date: May 19, 2023 Subjective Pt states that he felt great. On RA. Lots of questions answered. on phone as well. Review of Systems Review of Systems: All systems reviewed & are unremarkable except as noted in Subjective Physical Exam Physical Exam: General: Alert, oriented. No acute distress Skin: left axillary skin rash Psych: Appropriate mood and affect Neuro: No gross deficits HEENT: NC/AT Chest: Nontender to palpation. CV: RRR Resp: Breath sounds coarse bilaterally, no increased effort of breathing. Abdomen: protuberant Extremities: No edema in lower extremities bilaterally. Results & Data Results & Data Vital Signs (Past 12 Hours) Vital Signs Temp Pulse Pulse Resp BP Pulse Ox O2 Del Method 05/22/23 16:00 36.8 C 60 18 150/69 H 95 Room Air 05/22/23 15:40 67 05/22/23 12:12 36.7 C 59 L 20 144/71 H 97 Room Air 05/22/23 10:15 Room Air 05/22/23 07:49 66 05/22/23 07:20 36.5 C 60 18 155/87 H 96 Room Air (2) Sepsis Acute respiratory failure type: with hypoxia Sepsis acute organ dysfunction status: with acute organ dysfunction Sepsis type: sepsis due to unspecified organism Severe sepsis acute organ dysfunction type: acute respiratory failure Severe sepsis shock status: unspecified Qualified Code(s): A41.9 - Sepsis, unspecified organism; R65.20 - Severe sepsis without septic shock; J96.01 - Acute respiratory failure with hypoxia
[2023-05-22] MEDS: LORATADINE 10 MG TAB PO ONE (20:13)
[2023-05-22] MEDS: ALBUT/IPRATROP 3MG/0.5MG NEB 3 ML VIAL NEB PRN (21:33)
--- NOTE | 2023-05-22 22:29 | CT Scan Report ---
Exam(s): CT CHEST With Contrast EXAM: CT Chest With Intravenous Contrast CLINICAL HISTORY: Hemoptysis. TECHNIQUE: Axial computed tomography images of the chest with intravenous contrast. CTDI is 25.55 mGy and DLP is 868.44 mGy-cm. Automated exposure control was utilized for the study. A dose lowering technique was utilized adhering to the principles of ALARA. CONTRAST: IV contrast was utilized COMPARISON: No relevant prior studies available. FINDINGS: Lungs: Mild airspace opacities of the lung bases could represent atelectasis, atypical infection and/or aspiration. Pleural space: Unremarkable. No pneumothorax. No significant effusion. Heart: Unremarkable. No cardiomegaly. No significant pericardial effusion. No significant coronary artery calcifications. Bones/joints: There are degenerative changes of the spine. No acute fracture. No dislocation. Soft tissues: Unremarkable. Vasculature: Unremarkable. No thoracic aortic aneurysm. Lymph nodes: Unremarkable. No enlarged lymph nodes. IMPRESSION: Mild airspace opacities of the lung bases could represent atelectasis, atypical infection and/or aspiration. Electronically signed by: Isabella Parry MD 05/22/23 22:28 PM
[2023-05-22 22:57] LABS: Basophils # (auto) 0.05 K/uL (0.00-0.20); Basophils % (auto) 0.3 %; Eosinophils # (auto) 0.15 K/uL (0.00-0.50); Eosinophils % (auto) 0.9 %; Hematocrit (blood only) 43.2 % (42.0-52.0); Hemoglobin 13.9 g/dl (14.0-18.0); Immature Granulocytes # (auto) 0.17 K/uL (0.01-0.20); Lymphocytes # (auto) 2.61 K/uL (1.20-3.40); Lymphocytes % (auto) 15.3 %; Mean Corpuscular Hemoglobin 29.2 pg (25.0-34.0); Mean Corpuscular Hgb Conc 32.2 g/dL (32.0-36.0); Mean Corpuscular Volume 90.8 fL (80.0-100.0); Mean Platelet Volume 11.2 fL (9.4-12.4); Monocytes % (auto) 4.7 %; Neutrophils % (auto) 77.8 %; Platelet Count 216 K/uL (130-400); RDW Coefficient of Variation 14.9 % (11.5-14.5); RDW Standard Deviation 49.2 fL (36.4-46.3); Red Blood Count 4.76 M/uL (4.70-6.10); White Blood Count 17.08 K/ul (4.8-10.8)
[2023-05-22] MEDS: BENZONATATE 100 MG CAPSULE PO SCH (23:17)
--- NOTE | 2023-05-23 01:38 | Communication Note ---
Date of Service: May 22, 2023 Late entry 7:20 PM Patient with itching and red spots noted on arms and on the neck as per RN. No breathing issues. AP Possible Augmentin hypersensitivity History Zosyn allergy Claritin now Stop Augmentin and add to ADR list Clindamycin in place of Augmentin for possible aspiration pneumonia 9:15 PM Patient with hemoptysis episode as per RN. No respiratory distress. AP Hemoptysis Aspiration pneumonia ongoing antibiotic Rx CT chest Continue antitussives Hold Lovenox for now
[2023-05-23] MEDS: SODIUM CHLORIDE 0.9% 1,000 ML IV ONE (02:49)
[2023-05-23 06:24] LABS: Basophils # (auto) 0.04 K/uL (0.00-0.20); Basophils % (auto) 0.3 %; Eosinophils % (auto) 2.7 %; Hematocrit (blood only) 39.8 % (42.0-52.0); Hemoglobin 12.9 g/dl (14.0-18.0); Immature Granulocytes # (auto) 0.16 K/uL (0.01-0.20); Immature Granulocytes % (auto) 1.1 %; Lymphocytes # (auto) 2.89 K/uL (1.20-3.40); Lymphocytes % (auto) 19.9 %; Mean Corpuscular Hgb Conc 32.4 g/dL (32.0-36.0); Mean Corpuscular Volume 89.4 fL (80.0-100.0); Monocytes # (auto) 0.95 K/uL (0.11-0.59); Monocytes % (auto) 6.5 %; Neutrophils # (auto) 10.11 K/uL (1.40-6.50); Neutrophils % (auto) 69.5 %; Platelet Count 192 K/uL (130-400); RDW Coefficient of Variation 14.9 % (11.5-14.5); RDW Standard Deviation 48.7 fL (36.4-46.3); Red Blood Count 4.45 M/uL (4.70-6.10); White Blood Count 14.55 K/ul (4.8-10.8)
[2023-05-23 06:35] LABS: Albumin Globulin Ratio 1.3 (0.9-2); Albumin Level 3.1 gm/dl (3.4-5.0); Bilirubin,Total 0.4 mg/dl (0.2-1.0); Calcium 8.4 mg/dl (8.6-10.3); Creatinine Clr Calc Pharmacy 95.4 ml/min; Est GFR (African American) 99.8 ml/min; Est GFR (Non-African American) 86.2 ml/min; Globulin 2.3 gm/dl (2.5-4.0); Magnesium 1.5 mg/dl (1.7-2.4); Phosphorus 3.7 mg/dl (2.5-4.9); Potassium 3.3 mmol/L (3.5-5.1); Total Protein 5.4 gm/dl (6.0-8.3)
[2023-05-23] MEDS: OPTIRAY 320 100ml IV ONE (07:27)
[2023-05-23] MEDS ORDERED: PANTOPRAZOLE BOLUS/DRIP IV STA (07:56)
[2023-05-23] MEDS: PANTOprazole 80 MG in DEXTROSE 5% 100 ML IV ONE (08:07)
[2023-05-23] MEDS ORDERED: PANTOprazole 40 MG in DEXTROSE 5% MINI-B 100 ML IV SCH (08:15)
[2023-05-23] MEDS: ADVANCED PROBIOTIC 625 MG CAPSULE PO SCH (09:10)
[2023-05-23] MEDS: CLINDAMYCIN HCL 150 MG CAP PO SCH (09:11)
[2023-05-23] MEDS: HYDROCORTISONE SOD 50 MG in SYRINGE 0 ML IV SCH (09:12)
[2023-05-23] MEDS: PANTOprazole 40 MG in SYRINGE 0 ML IV SCH (09:12)
[2023-05-23] MEDS: POTASSIUM CHLORIDE CRTAB 20 MEQ TABCR PO STA (09:14)
--- NOTE | 2023-05-23 12:10 | Hospitalist Progress Note ---
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 He has had resp symptoms for about 4 weeks. Initially placed on steroids and antibiotic x 2 weeks, then another round of slow taper prednisone (currently on 20 mg daily). Sepsis Pneumonia, possible aspiration Complicated UTI Hx of Asthma Pt presenting with AMS, increased oxygen requirement Tachycardic with leukocytosis, increased RR with likely pulmonary infectious source Lactate of 3.0, down to 2.6 with fluid resuscitation Procalcitonin persistently elevated 21.1-->31.9 Chest XR with noted mild cardiomegaly, pulm vascular congestion, small pleural effusions Chest CTA no PE, but notable for pneumonia and airways disease CT abd/pelvis noting pneumonia, mild intrahepatic biliary ductal dilatation, mild thickening and enhancement of the common bile duct wall, kidney stones, splenomegaly, avascular necrosis of left femoral head. UA suggestive of infection, urine Cx NGTD Blood Cx NGTD Was started on Zosyn in the ED and developed a rash Transitioned to empiric Flagyl and Cefepime, has since been transitioned to po Augmentin in the ICU -developed rash once more overnight on the -switched to Clindamycin. Porbiotic ordered. Monitor for c diff. Speech consult for possibility of aspiration- not aspirating Continue to monitor and follow cultures Septic Shock-Resolved BP was persistently low on admission Admitted to the ICU for consideration of pressor support Was treated with IV Hydrocortisone 50mg q6h and Florinef 0.1 daily for stress steroid dosing, per Chief Unit Forester wean off in 3-5days -weaning -currently off Florinef, transitioned to hydrocortisone 50mg q12 yesterday, hydrocortisone 50mg daily today. Hydrocortisone 25mg in AM before discontinuing. -consider continued adrenal support with po steroids after d/c Was also started on midodrine 10mg TID (currently off with inc BP) BP currently stable weaning steroids and midodrine as above Acute hypoxic Respiratory Failure Viral infections-Enterovirus, H1N1 2009 Flu Pt with increased oxygen need on admission, oxymask 6L Hx of asthma Received dose of Solumedrol 125mg in the ED Treated with Tamiflu in the ICU Duroderick scheduled pt on Trelegy inhaler at home, formulary alternative Supportive viral treatments otherwise Oxygen supplementation as needed, wean as tolerated Continue to monitor Acute metabolic Encephalopathy Pt confused with altered mental status on admission Likely in setting of sepsis above VBG with no noted hypercapnia currently very much improved Continue to monitor Lactic Acidosis Lactate persistently elevated 3.0 to 2.6 on May 18 On May 20- lactate 2.5 then down to 1.9 after IV thiamine Currently resolved Acute Kidney Injury Cr elevated at 1.54 on admission Subsequently downtrending Continue to monitor Currently resolved Electrolyte Abnormalities Hypophosphatemia- replete as needed Hypomagnesemia- replete as needed Elevated Trop Cardiomegaly hs-trop elevated at 21.6 to 21.5 to 13.1 EKG noting sinus tach Echo with EF 50-55%, mild LVH Likely demand in setting of above, doubt ACS Intrahepatic biliary ductal dilatation mild thickening and enhancement of the common bile duct wall Elevated liver enzymes Noted on CT abd/pelvis T bili elevated on admission, currently wnl pt s/p cholecystectomy last year Liver US ordered-unremarkable Follow liver enzymes Avascular Necrosis of L femoral head Noted on CT abd/pelvis Outpt orthopedic follow up Nephrolithiasis Noted on CT abd pelvis Nonobstructing Continue to monitor, pcp f/u Splenomegaly Pt with enlarged spleen Likely chronic peripheral smear suggestive of prednisone related reaction PCP follow up Leukocytosis Significant leukocytosis on admission WBC 43K to 42K Pt has been on chronic steroids, current infection, however significantly elevated peripheral smear suggestive of prednisone related reaction Denies cancer Hx hematology consult placed for further recs, appreciated -likely prednisone related reaction Hyperglycemia Prediabetes Glucose levels elevated Pt on chronic steroids AM hgba1c 5.8 Anemia Hgb down from 16 to 13 Possibly dilutional AM iron level, ferritin, b12 and folate wnl Left axillary rash Desenex ordered CODE STATUS: Full code Diet: regular DVT prophylaxis: On lovenox Dispo: PT/OT ordered Admission and Anticipated Discharge Date Admission Date: May 19, 2023 Subjective Pt states that he felt great. On RA. Lots of questions answered. on phone as well. Lots of questions answered today again. Review of Systems Review of Systems: All systems reviewed & are unremarkable except as noted in Subjective Physical Exam Physical Exam: General: Alert, oriented. No acute distress Skin: left axillary skin rash Psych: Appropriate mood and affect Neuro: No gross deficits HEENT: NC/AT Chest: Nontender to palpation. CV: RRR Resp: Breath sounds coarse bilaterally, no increased effort of breathing. Abdomen: protuberant Extremities: No edema in lower extremities bilaterally. Results & Data Results & Data Vital Signs (Past 12 Hours) Vital Signs Temp Pulse Pulse Resp BP Pulse Ox O2 Del Method 05/23/23 11:00 36.6 C 68 16 162/93 H 94 Room Air 05/23/23 10:24 Room Air 05/23/23 08:13 63 05/23/23 07:31 36.5 C 65 16 134/83 93 Room Air 05/23/23 04:00 36.6 C 71 18 132/70 93 Room Air (2) Sepsis Acute respiratory failure type: with hypoxia Sepsis acute organ dysfunction status: with acute organ dysfunction Sepsis type: sepsis due to unspecified organism Severe sepsis acute organ dysfunction type: acute respiratory failure Severe sepsis shock status: unspecified Qualified Code(s): A41.9 - Sepsis, unspecified organism; R65.20 - Severe sepsis without septic shock; J96.01 - Acute respiratory failure with hypoxia
[2023-05-24 08:20] LABS: Basophils # (auto) 0.05 K/uL (0.00-0.20); Basophils % (auto) 0.3 %; Eosinophils # (auto) 0.63 K/uL (0.00-0.50); Eosinophils % (auto) 4.2 %; Hematocrit (blood only) 42.7 % (42.0-52.0); Hemoglobin 13.9 g/dl (14.0-18.0); Immature Granulocytes # (auto) 0.33 K/uL (0.01-0.20); Immature Granulocytes % (auto) 2.2 %; Lymphocytes # (auto) 3.66 K/uL (1.20-3.40); Lymphocytes % (auto) 24.4 %; Mean Corpuscular Hgb Conc 32.6 g/dL (32.0-36.0); Mean Platelet Volume 10.9 fL (9.4-12.4); Monocytes # (auto) 1.07 K/uL (0.11-0.59); Monocytes % (auto) 7.1 %; Neutrophils # (auto) 9.27 K/uL (1.40-6.50); Neutrophils % (auto) 61.8 %; Platelet Count 220 K/uL (130-400); RDW Coefficient of Variation 14.7 % (11.5-14.5); White Blood Count 15.01 K/ul (4.8-10.8)
[2023-05-24 08:34] LABS: Albumin Globulin Ratio 1.4 (0.9-2); Albumin Level 3.4 gm/dl (3.4-5.0); BUN Creatinine Ratio 23.5 (10-20); Bilirubin,Total 0.6 mg/dl (0.2-1.0); Calcium 8.8 mg/dl (8.6-10.3); Est GFR (African American) 97.5 ml/min; Est GFR (Non-African American) 84.1 ml/min; Globulin 2.5 gm/dl (2.5-4.0); Magnesium 1.6 mg/dl (1.7-2.4); Phosphorus 3.4 mg/dl (2.5-4.9); Potassium 4.1 mmol/L (3.5-5.1); Total Protein 5.9 gm/dl (6.0-8.3)
[2023-05-24] MEDS: HYDROCORTISONE SOD 25 MG in SYRINGE 0 ML IV SCH (09:02)
--- NOTE | 2023-05-24 16:20 | Hospitalist Progress Note ---
Date of Service May 24, 2023 Assessment & Plan (1) Acute respiratory failure with hypoxia: (2) Sepsis: (3) Rhinovirus infection: (4) Lactic acidosis: (5) Hypotension: (6) Septic shock: Plan Mr. 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 He has had resp symptoms for about 4 weeks. Initially placed on steroids and antibiotic x 2 weeks, then another round of slow taper prednisone (currently on 20 mg daily). #Sepsis *resolved Multifactorial, concern for pneumonia, viral infection, ? UTI on admission without growth to date ICU admission on 05/18, transfered to ICU BP was persistently low on admission Admitted to the ICU for consideration of pressor support Was treated with IV Hydrocortisone 50mg q6h and Florinef 0.1 daily for stress steroid dosing, per Regional Business Development Manager wean off in 3-5days -weaning -currently off Florinef, transitioned to hydrocortisone 50mg q12 yesterday, hydrocortisone 50mg daily today. Hydrocortisone 25mg today, discontinue in am -consider continued adrenal support with po steroids after d/c BP currently stable Midodrine discontinued 2/2 elevated blood pressures #acute hypoxic respiratory failure 2/2 asthma exacerbation, superimposed pneumonia #Influenza H1N1 #Multifocal Pneumonia, possible aspiration #Asthma Pt presenting with AMS, increased oxygen requirement Tachycardic with leukocytosis, increased RR with likely pulmonary infectious source Lactate of 3.0, down to 2.6 with fluid resuscitation Procalcitonin persistently elevated 21.1-->31.9 Chest XR with noted mild cardiomegaly, pulm vascular congestion, small pleural effusions Chest CTA no PE, but notable for pneumonia and airways disease CT abd/pelvis noting pneumonia, mild intrahepatic biliary ductal dilatation, mild thickening and enhancement of the common bile duct wall, kidney stones, splenomegaly, avascular necrosis of left femoral head. UA suggestive of infection, urine Cx NGTD Blood Cx NGTD Was started on Zosyn in the ED and developed a rash Transitioned to empiric Flagyl and Cefepime, has since been transitioned to po Augmentin in the ICU -developed rash once more overnight on the -switched to Clindamycin. Probiotic ordered. Monitor for c diff. Speech consult for possibility of aspiration- not aspirating Continue to monitor and follow cultures -Completed tamiflu -Continue mucinex -Duonebs prn -Resume home trelegy upon dispo -On room air #Abnormal UA *ruled out No symptoms, NGTD on culture #Acute metabolic Encephalopathy *resolved Pt confused with altered mental status on admission Likely in setting of sepsis above VBG with no noted hypercapnia currently very much improved Continue to monitor #Lactic Acidosis Lactate persistently elevated 3.0 to 2.6 on May 18 On May 20- lactate 2.5 then down to 1.9 after IV thiamine Currently resolved #Acute Kidney Injury resolved Cr elevated at 1.54 on admission Subsequently downtrending Continue to monitor Currently resolved Electrolyte Abnormalities Hypophosphatemia- replete as needed Hypomagnesemia- replete as needed #Elevated Trop #Cardiomegaly hs-trop elevated at 21.6 to 21.5 to 13.1 EKG noting sinus tach Echo with EF 50-55%, mild LVH Likely demand in setting of above, doubt ACS #Intrahepatic biliary ductal dilatation #mild thickening and enhancement of the common bile duct wall #Elevated liver enzymes *resolved Noted on CT abd/pelvis T bili elevated on admission, currently wnl pt s/p cholecystectomy last year Liver US ordered-unremarkable Follow liver enzymes #Avascular Necrosis of L femoral head Noted on CT abd/pelvis Outpt orthopedic follow up #Nephrolithiasis Noted on CT abd pelvis Nonobstructing Continue to monitor, pcp f/u #Splenomegaly Pt with enlarged spleen Likely chronic peripheral smear suggestive of prednisone related reaction PCP follow up #Leukocytosis Significant leukocytosis on admission WBC 43K to 42K Pt has been on chronic steroids, current infection, however significantly elevated peripheral smear suggestive of prednisone related reaction Denies cancer Hx hematology consult placed for further recs, appreciated -likely prednisone related reaction #Hyperglycemia #Prediabetes Glucose levels elevated Pt on chronic steroids AM hgba1c 5.8 #Normocytic Anemia Hgb down from 16 to 13 Possibly dilutional AM iron level, ferritin, b12 and folate wnl #Left axillary rash Desenex ordered CODE STATUS: Full code Diet: regular DVT prophylaxis: On lovenox Potential discharge 05/24 Admission and Anticipated Discharge Date Admission Date: May 19, 2023 Subjective No acute events overnight Reports feeling mostly improved, denies any SOB, dyspnea, cough, wheezing Agree for dispo tomorrow to assess how breathing is doing with minimal steroid Physical Exam Constitutional: WD/WN, vitals as above Respiratory: normal respiratory effort, lungs clear to auscultation Cardiovascular: RRR, no murmur, no edema Gastrointestinal (Abdomen): normal bowel sounds, soft, nontender, no hepatosplenomegaly Results & Data Results & Data Vital Signs (Past 12 Hours) Vital Signs Temp Pulse Pulse Resp BP Pulse Ox O2 Del Method 05/24/23 15:24 36.7 C 66 19 150/75 H 95 Room Air 05/24/23 11:12 36.7 C 74 19 153/97 H 94 Room Air 05/24/23 09:21 Room Air 05/24/23 07:11 36.4 C L 63 20 159/97 H 95 Room Air 05/24/23 07:06 60 Laboratory Results Short CBC 05/24/23 Range/Units 07:58 WBC 15.01 H (4.8-10.8) K/ul Hgb 13.9 L (14.0-18.0) g/dl Hct 42.7 (42.0-52.0) % Plt Count 220 (130-400) K/uL BMP 05/24/23 07:58 Sodium 140 Potassium 4.1 D Chloride 108 H Carbon Dioxide 28 BUN 24 H Creatinine 1.02 Glucose 79 Calcium 8.8 Liver Function 05/24/23 Range/Units 07:58 Total Bilirubin 0.6 (0.2-1.0) mg/dl AST 17 (13-39) U/L ALT 53 H (7-52) U/L Alkaline Phosphatase 64 (34-104) U/L Albumin 3.4 (3.4-5.0) gm/dl Medications Administered Home Medications Medication Instructions Recorded Confirmed Last Taken acetaminophen 500 mg tablet 500 mg PO Q6H PRN pain/fever 05/19/23 05/19/23 Unknown albuterol sulfate 1.25 mg/3 mL 1.25 mg continuous nebulization 05/19/23 05/19/23 Unknown solution for nebulization Q4H PRN Breathing Problems albuterol sulfate 90 mcg/actuation 2 puff inhalation Q4H PRN 05/19/23 05/19/23 Unknown aerosol inhaler Breathing Problems fluticasone fur. 200 mcg-umeclid 1 inh inhalation QAM 05/19/23 05/19/23 05/18/23 62.5 mcg-vilant 25 mcg inhalat.powder (Trelegy Ellipta) ibuprofen 200 mg tablet 200 mg PO Q6H PRN Pain 05/19/23 05/19/23 Unknown montelukast 10 mg tablet 10 mg PO HS 05/19/23 05/19/23 05/18/23 naproxen 500 mg tablet,delayed 500 mg PO BID PRN pain in knees 05/19/23 05/19/23 Unknown release prednisone 10 mg tablet See Rx Instructions .Route .COMPLEX 05/19/23 05/19/23 05/18/23 tramadol 50 mg tablet 50 mg PO Q8H PRN Severe Pain 05/19/23 05/19/23 Unknown (Scale Score 7-10) Active Medications Generic Name Dose Route Start Last Admin Trade Name Freq PRN Reason Stop Dose Admin Acetaminophen 650 mg 05/19/23 12:12 05/23/23 09:10 Acetaminophen 325 Mg Tab PO 06/18/23 12:11 650 mg Q4H PRN Administration Moderate Pain (Scale 4, 5, 6) Albuterol 3 ml 05/21/23 09:36 05/22/23 21:33 Albut/Ipratrop 3mg/0.5mg Neb 3 Ml Vial NEB 06/18/23 12:11 3 ml Q4R PRN Administration Shortness Of Breath Or Wheezing Protocol Benzonatate 100 mg 05/22/23 21:25 05/24/23 14:21 Benzonatate 100 Mg Capsule PO 06/21/23 21:24 100 mg TID ALVAREZ Administration Clindamycin HCl 300 mg 05/23/23 09:00 05/24/23 14:21 Clindamycin Hcl 150 Mg Cap PO 05/30/23 08:59 300 mg TID ALVAREZ Administration Enoxaparin Sodium 30 mg 05/19/23 12:00 05/22/23 11:31 Enoxaparin Inj 30 Mg/0.3 Ml Syr SQ 06/18/23 11:59 Not Given Q12H ALVAREZ Fluticasone/Vilanterol 1 puffs 05/21/23 10:30 05/24/23 09:02 Fluticasone/Vilanterol 200/25mcg 14 Puffs/Inhaler INH 06/20/23 10:29 1 puffs DAILY ALVAREZ Administration Guaifenesin 1,200 mg 05/19/23 12:12 05/24/23 09:02 Guaifenesin 600 Mg Tabcr PO 06/18/23 12:11 1,200 mg Q12 ALVAREZ Administration Thiamine HCl 200 mg/ Sodium 52 mls @ 210 mls/hr 05/21/23 12:00 05/24/23 09:26 Chloride IV 06/20/23 11:59 Infused QAM ALVAREZ Infusion Pantoprazole Sodium 40 mg/ 10 mls @ 5 mls/min 05/23/23 09:00 05/24/23 09:02 Syringe IV 06/22/23 08:59 5 mls/min BID ALVAREZ Administration Hydrocortisone Sodium 0.5 mls @ 4 mls/min 05/24/23 09:00 05/24/23 09:02 Succinate 25 mg/ Syringe IV 06/23/23 08:59 4 mls/min DAILY ALVAREZ Administration Lactobacillus Acidophilus 1,250 mg 05/23/23 09:00 05/24/23 09:01 Advanced Probiotic 625 Mg Capsule PO 06/22/23 08:59 1,250 mg DAILY ALVAREZ Administration Umeclidinium [place] 1 puffs 05/21/23 10:30 05/24/23 09:02 Umeclidinium [place] 62.5mcg/Blister 7 Puffs/Inhaler INH 06/20/23 10:29 1 puffs QAM ALVAREZ Administration (2) Sepsis Acute respiratory failure type: with hypoxia Sepsis acute organ dysfunction status: with acute organ dysfunction Sepsis type: sepsis due to unspecified organism Severe sepsis acute organ dysfunction type: acute respiratory failure Severe sepsis shock status: unspecified Qualified Code(s): A41.9 - Sepsis, unspecified organism; R65.20 - Severe sepsis without septic shock; J96.01 - Acute respiratory failure with hypoxia
[2023-05-24] MEDS: MAGNESIUM CHLORIDE W/CALCIUM 64MG DELAYED REL TAB PO SCH (20:34)
[2023-05-25 06:31] LABS: Basophils # (auto) 0.07 K/uL (0.00-0.20); Basophils % (auto) 0.5 %; Eosinophils # (auto) 0.72 K/uL (0.00-0.50); Eosinophils % (auto) 4.7 %; Hematocrit (blood only) 40.9 % (42.0-52.0); Hemoglobin 13.8 g/dl (14.0-18.0); Immature Granulocytes # (auto) 0.55 K/uL (0.01-0.20); Immature Granulocytes % (auto) 3.6 %; Lymphocytes # (auto) 3.48 K/uL (1.20-3.40); Lymphocytes % (auto) 22.7 %; Mean Corpuscular Hemoglobin 29.4 pg (25.0-34.0); Mean Corpuscular Hgb Conc 33.7 g/dL (32.0-36.0); Mean Platelet Volume 10.8 fL (9.4-12.4); Monocytes # (auto) 1.26 K/uL (0.11-0.59); Monocytes % (auto) 8.2 %; Neutrophils # (auto) 9.24 K/uL (1.40-6.50); Neutrophils % (auto) 60.3 %; Platelet Count 249 K/uL (130-400); RDW Coefficient of Variation 14.3 % (11.5-14.5); RDW Standard Deviation 45.9 fL (36.4-46.3); White Blood Count 15.32 K/ul (4.8-10.8)
[2023-05-25 06:34] LABS: Albumin Globulin Ratio 1.1 (0.9-2); Albumin Level 3.2 gm/dl (3.4-5.0); BUN Creatinine Ratio 24.5 (10-20); Bilirubin,Total 0.6 mg/dl (0.2-1.0); Calcium 8.8 mg/dl (8.6-10.3); Creatinine Clr Calc Pharmacy 92.8 ml/min; Est GFR (African American) 97.5 ml/min; Est GFR (Non-African American) 84.1 ml/min; Globulin 2.8 gm/dl (2.5-4.0); Magnesium 1.7 mg/dl (1.7-2.4); Phosphorus 3.6 mg/dl (2.5-4.9); Potassium 3.8 mmol/L (3.5-5.1)
[2023-05-25] MEDS: amLODIPine BESYLATE 5 MG TAB PO SCH (08:53)
--- NOTE | 2023-05-25 13:00 | Discharge Summary ---
Discharge Summary Date of Service May 25, 2023 Notes For Next Care Provider Weaned off of steroids and midodrine Medication Changes From Visit Clindamycin 300mg TID Probiotics Amlodipine 5 mg daily Admission HPI Per Admitting Provider This is a 52-year-old male with PMHx of asthma, non-smoker, who presents to the hospital with increased work of breathing, dyspnea on exertion, change in mental status. Per he has been having symptoms of a cold for the past 4 weeks and was placed on steroids by an urgent care within that timeframe. 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 Shoemaker in [place], about 2 weeks ago. There he was placed on a national insurance officer steroid taper with prednisone 30 mg daily x 7 days, then 20 and 10 mg for a week each. He is currently on 20 mg prednisone daily. Last night he felt worsening breathing. This morning he used nebulizer tx, and seemed confused to his , Sara, who is present at bedside. She reports that due to his confusion she took him to the ER. This morning pt was febrile Tmax of 103. Breathing issues started around 2004 when he was exposed to black mold, he underwent nasal polypectomy and asthma since then. CT of the chest is pending, WBC is elevated at 43 K with a left shift, creatinine of 1.5, BUN 20 but no previous labs to compare this to, lactate 3.0, mag 1.4, troponin slightly bumped at 21.6 blood pressure is slightly soft, tachycardic, and has new O2 oxygen requirement. Family Hx: Mother: Multiple CVA, possible clot Father:Aneurysm Brother: Prostate Cancer Surgical Hx: Cholecystectomy Admission Exam Per Admitting Provider General: awakens to verbal stimuli, alert, no apparent distress, answers questions appropriately Head: Normocephalic, atraumatic ENT: PERRL, EOMI, no pharyngeal exudate, mucous membranes moist Chest: Diminished breath sounds throughout but present, no wheezing, on 4 L via oximask, no crackles Cardiac: Sinus tachycardia, HR in 110s-115 at bedside, no murmur, no JVD, normal peripheral pulses, good capillary refill Abdominal: NABS x 4 quadrants, soft, nondistended, nontender to palpation, no rebound or guarding Extremities: Normal inspection, no peripheral edema or erythema, calfs nontender to palpation Skin: developing hives on ankles, upper inner arms, chest, abdomen Psych: Normal mood and affect Neuro: AAO to place, self and time with year and Month, strength intact bilaterally and rated 4/5, no motor deficits, speech is clear, no peripheral sensory deficits Principal Dx & Hospital Course #1 = Principal Diagnosis (1) Acute respiratory failure with hypoxia: (2) Sepsis: (3) Rhinovirus infection: (4) Lactic acidosis: (5) Hypotension: (6) Septic shock: Plan Mr. Edmondson is a 52-year-old male with PMHx of asthma, non-smoker, who presents to the hospital with increased work of breathing, dyspnea on exertion, increased confusion for the past day [employer]. He has had resp symptoms for about 4 weeks. Initially placed on steroids and antibiotic x 2 weeks, then another round of slow taper prednisone (currently on 20 mg daily). #Hypertension Amlodipine 5 mg daily #Sepsis *resolved Multifactorial, concern for pneumonia, viral infection, ? UTI on admission without growth to date ICU admission on 05/18, transferred to ICU BP was persistently low on admission Admitted to the ICU for consideration of pressor support Was treated with IV Hydrocortisone 50mg q6h and Florinef 0.1 daily for stress steroid dosing, per Construction Management Assistant wean off in 3-5days -weaning -currently off Florinef, transitioned to hydrocortisone 50mg q12 yesterday, hydrocortisone 50mg daily today. Hydrocortisone 25mg today, discontinue in am BP currently stable Midodrine discontinued 2/2 elevated blood pressures #acute hypoxic respiratory failure 2/2 asthma exacerbation, superimposed pneumonia #Influenza H1N1 #Multifocal Pneumonia, possible aspiration #Asthma Pt presenting with AMS, increased oxygen requirement Tachycardic with leukocytosis, increased RR with likely pulmonary infectious source Lactate of 3.0, down to 2.6 with fluid resuscitation Procalcitonin persistently elevated 21.1-->31.9 Chest XR with noted mild cardiomegaly, pulm vascular congestion, small pleural effusions Chest CTA no PE, but notable for pneumonia and airways disease CT abd/pelvis noting pneumonia, mild intrahepatic biliary ductal dilatation, mild thickening and enhancement of the common bile duct wall, kidney stones, splenomegaly, avascular necrosis of left femoral head. UA suggestive of infection, urine Cx NGTD Blood Cx NGTD Was started on Zosyn in the ED and developed a rash Transitioned to empiric Flagyl and Cefepime, has since been transitioned to po Augmentin in the ICU -developed rash once more overnight on the -switched to Clindamycin. Probiotic ordered. Monitor for c diff. Speech consult for possibility of aspiration- not aspirating Continue to monitor and follow cultures -Completed tamiflu -Resume home trelegy upon dispo -On room air #Abnormal UA *ruled out No symptoms, NGTD on culture #Acute metabolic Encephalopathy *resolved Pt confused with altered mental status on admission Likely in setting of sepsis above VBG with no noted hypercapnia currently very much improved Continue to monitor #Lactic Acidosis Lactate persistently elevated 3.0 to 2.6 on May 18 On May 20- lactate 2.5 then down to 1.9 after IV thiamine Currently resolved #Acute Kidney Injury resolved Cr elevated at 1.54 on admission Subsequently downtrending Continue to monitor Currently resolved Electrolyte Abnormalities Hypophosphatemia- replete as needed Hypomagnesemia- replete as needed #Elevated Trop #Cardiomegaly hs-trop elevated at 21.6 to 21.5 to 13.1 EKG noting sinus tach Echo with EF 50-55%, mild LVH Likely demand in setting of above, doubt ACS #Intrahepatic biliary ductal dilatation #mild thickening and enhancement of the common bile duct wall #Elevated liver enzymes *resolved Noted on CT abd/pelvis T bili elevated on admission, currently wnl pt s/p cholecystectomy last year Liver US ordered-unremarkable Follow liver enzymes #Avascular Necrosis of L femoral head Noted on CT abd/pelvis Outpt orthopedic follow up #Nephrolithiasis Noted on CT abd pelvis Nonobstructing Continue to monitor, pcp f/u #Splenomegaly Pt with enlarged spleen Likely chronic peripheral smear suggestive of prednisone related reaction PCP follow up #Leukocytosis Significant leukocytosis on admission WBC 43K to 42K Pt has been on chronic steroids, current infection, however significantly elevated peripheral smear suggestive of prednisone related reaction Denies cancer Hx hematology consult placed for further recs, appreciated -likely prednisone related reaction #Hyperglycemia #Prediabetes Glucose levels elevated Pt on chronic steroids AM [id number] 5.8 #Normocytic Anemia Hgb down from 16 to 13 Possibly dilutional AM iron level, ferritin, b12 and folate wnl #Left axillary rash Desenex ordered On day of discharge, patient was notably improved and denied any acute concerns. He reports eating well, feeling well, and denying any persistent [email or web address] Discharge Exam Constitutional WD/WN, vitals as above Respiratory normal respiratory effort, lungs clear to auscultation Cardiovascular RRR, no murmur, no edema Gastrointestinal (Abdomen) normal bowel sounds, soft, nontender, no hepatosplenomegaly Updated Medication List Medication Instructions Recorded Confirmed Type acetaminophen 500 mg tablet 500 mg PO Q6H PRN pain/fever 05/19/23 05/19/23 History albuterol sulfate 1.25 mg/3 mL 1.25 mg continuous nebulization 05/19/23 05/19/23 History solution for nebulization Q4H PRN Breathing Problems albuterol sulfate 90 mcg/actuation 2 puff inhalation Q4H PRN 05/19/23 05/19/23 History aerosol inhaler Breathing Problems fluticasone fur. 200 mcg-umeclid 1 inh inhalation QAM 05/19/23 05/19/23 History 62.5 mcg-vilant 25 mcg inhalat.powder (Trelegy Ellipta) montelukast 10 mg tablet 10 mg PO HS 05/19/23 05/19/23 History naproxen 500 mg tablet,delayed 500 mg PO BID PRN pain in knees 05/19/23 05/19/23 History release tramadol 50 mg tablet 50 mg PO Q8H PRN Severe Pain 05/19/23 05/19/23 History (Scale Score 7-10) L.acidop,casei,lactis,rham-B.lact,juancarlos 1 cap PO DAILY 30 days #30 caps 05/25/23 Rx 625 mg (10 billion cell) capsule (Advanced Probiotic) amlodipine 5 mg tablet (Norvasc) 5 mg PO QAM 30 days #30 tabs 05/25/23 Rx clindamycin HCl 300 mg capsule 300 mg PO TID 5 days #15 caps 05/25/23 Rx magnesium chloride 64 mg 64 mg PO DAILY #30 tabs 05/25/23 Rx (magnesium chloride) tablet,delayed release (Mag 64) Hospital Stay Data Consultations 05/19/23 08:27 ED Decision to Admit Stat 05/19/23 09:40 Consult Construction Management Assistant Routine 05/21/23 10:25 Consult Hematology Routine Diagnostic Imagining Performed 05/19/23 08:56 CT angio chest PE protocol Stat 05/19/23 09:45 CT Abd and Pelvis [CT abd pelvis IV con only] Stat 05/21/23 10:08 US liver Urgent 05/22/23 21:27 CT chest with contrast [CT chest diagnostic w con] Stat Pending Results Patient Have Any Pending Studies at Discharge: No Discharge Instructions Given to Patient (Per Discharging Provider) You were admitted for respiratory failure due to asthma and multifocal pneumonia. You were noted to have Influenza H1N1 disease. You were treated with IV steroids and IV antibiotics. You were successfully weened off of steroids. You will complete a course of clindamycin 300mg, three times a day. Please take a probiotic with this course and 1 week thereafter to help prevent stomach upset and diarrhea. Your blood pressure was notably high during admission after recovering from acute illness. You were started on amlodipine 5mg daily. Please follow up with your PCP to discuss your blood pressure and adjust further medications/lifestyle as necessary. Total Time Total Time Spent Total Time Spent (In Minutes): 35
== END 2023-05-25 10:52 | disposition home or self-care (01) | DRG 871 ==
LOC: ED 06:16 → SUATTDRO 08:31 → EDINP 08:31 → 1E 09:02 → 4W 05-20 18:45